=== PATIENT | female | born 1945 | race Caucasian/White ===

== ENCOUNTER → 2017-03-23 | Outpatient (CLI) | payer MEDICARE, OTHER | END | disposition home or self-care (01) | LOC: GMAB 10:54 | PROVIDERS: ATTEND Family Medicine | DX: D50.9 Iron deficiency anemia, unspecified (principal); I10 Essential (primary) hypertension; E53.8 Deficiency of other specified B group vitamins ==

== ENCOUNTER → 2017-03-30 | Outpatient (CLI) | payer MEDICARE, OTHER ==
--- NOTE | 2017-03-30 14:36 | US ---
EXAM DESCRIPTION: Carotid Duplex CLINICAL HISTORY: OCCLUSION AND STENOSIS OF BILATERAL CAROTID ARTERIES COMPARISON: None Available. TECHNIQUE: Carotid Doppler ultrasound with grayscale, color Doppler imaging, and spectral pulse Doppler evaluation FINDINGS: On the right the common carotid artery is tortuous with intimal thickening and minimal surface plaque with peak velocities of 71/9 cm/s. Focal calcified plaque mild at the carotid bifurcation with posterior acoustic shadowing is present. There is some plaque at the origin of the ICA noted. Antegrade flow in the external carotid artery and vertebral artery is evident. Peak ICA velocities are present distally at 95/24 cm/s with an ICA/CCA ratio of 1.3. No significant stenosis is identified. On the left, intimal thickening and mild tortuosity in the common carotid artery with peak velocities 78/17 cm/s noted echogenic and calcified plaque at the origin of the internal carotid artery is present. Antegrade flow in the external carotid artery and vertebral is present. Peak ICA velocities are 81/27 cm/s with an ICA/CCA ratio of 1.0. Mild spectral broadening is present. A hemodynamically significant stenosis is not evident. Less than 40% diameter stenosis is evident. IMPRESSION: Moderate bilateral atherosclerosis of each carotid bifurcation with normal Doppler evaluation without hemodynamically significant stenosis. Plaque formation is slightly greater on the left than the right. Antegrade flow both vertebral arteries. Electronically signed by: Greg Zambrano MD 03/30/2017 2:34 PM CDT
--- NOTE | 2017-03-31 13:36 | MAM ---
EXAM DESCRIPTION: 3D Screening BILATERAL CLINICAL HISTORY: 71 yearsFemaleSCREENING no complaints. No family history breast cancer. Postmenopausal. Taking HRT five or more years ago. COMPARISON: 2-D digital screening bilateral study 02/12/2014.. No prior reports available. TECHNIQUE: Bilateral CC and MLO projection full-field images, 3-D tomosynthesis digital mammographic technique. Also bilateral synthesized CC/ MLO full-field images. CAD not utilized. FINDINGS: The breast parenchymal density pattern is: Scattered areas of fibroglandular density. No skin thickening or nipple retraction left axillary lymph node. Bilateral solitary microcalcifications and larger calcifications. Bilateral vascular calcifications. Bilateral intramammary lymph nodes. No focal, stellate mass or density, focal asymmetry , and no suspicious microcalcifications bilaterally. Stable mammograms compared to prior study, taking into account differences in mammographic technique IMPRESSION: BI-RADS CATEGORY: 2 - BENIGN FINDINGS. FOLLOW UP: Routine digital bilateral screening, one year interval from March 2017. Written communication explaining the findings and follow-up, will be mailed to the patient and referring health care provider. According to the [employer], yearly mammograms are recommended starting at age 40 and continuing as long as a woman is in good health. Any breast change noted on a breast self-exam should be reported promptly to the patient's healthcare provider. Breast MRI is recommended for women with an approximately 20-25% or greater lifetime risk of breast cancer, including women with a strong family history of breast or ovarian cancer and women who have been treated for Hodgkin's disease. A negative mammographic report should not delay tissue diagnosis in patients with significant clinical history or physical findings. Extremely dense breast tissue limits the sensitivity of digital mammography. Electronically signed by: Jorge Alberto Hess MD 03/31/2017 1:35 PM CDT
== END | disposition home or self-care (01) ==
LOC: US 09:43
PROVIDERS: ATTEND Family Medicine
DX: Z12.31 Encounter for screening mammogram for malignant neoplasm of breast (principal); I65.23 Occlusion and stenosis of bilateral carotid arteries
CPT/HCPCS: 77063; 93880; G0202

== ENCOUNTER → 2017-10-06 | Outpatient (CLI) | payer MEDICARE, OTHER | LOC: GMAB 10:18 | PROVIDERS: ATTEND Family Medicine | DX: D53.9 Nutritional anemia, unspecified (principal); D50.9 Iron deficiency anemia, unspecified; E11.9 Type 2 diabetes mellitus without complications ==

== ENCOUNTER → 2017-10-24 | Outpatient (CLI) | payer MEDICARE, OTHER ==
--- NOTE | 2017-10-25 09:33 | RAD ---
EXAM DESCRIPTION: Pelvis CLINICAL HISTORY: 72 years Female, PAIN IN RIGHT HIP COMPARISON: None. TECHNIQUE: Frontal view of the hips and pelvis FINDINGS: Frontal view of the pelvis shows mild degenerative changes in the lower L-spine, at the SI joints and pubic symphysis. Mild narrowing of the medial hip joints. No fracture or dislocation. Few vascular calcifications in the pelvis. IMPRESSION: Degenerative changes as described. Electronically signed by: Tejinder Reese MD 10/25/2017 9:32 AM CDT
== END | disposition home or self-care (01) ==
LOC: RAD 08:03
PROVIDERS: ATTEND Orthopaedic Surgery
DX: M25.551 Pain in right hip (principal)

== ENCOUNTER → 2018-03-29 | Outpatient (CLI) | payer MEDICARE, OTHER | LOC: GMAE 11:37 | PROVIDERS: ATTEND Family Medicine | DX: I10 Essential (primary) hypertension (principal) ==

== ENCOUNTER 2018-11-26 05:25 | Day surgery (SDC) | payer MEDICARE, OTHER ==
[2018-11-26] MEDS ORDERED: TROP 1%/CYCLOPEN 1%/PHENYL 2% DROPS ONE (06:01)
[2018-11-26] MEDS ORDERED: MOXIFLOXACIN HCL (OPHTH) 1 DROP DROPS ONE (06:01)
[2018-11-26] MEDS ORDERED: PROPARACAINE 0.5% OPHTH SOL 15 ML BTTL ONE (06:01)
[2018-11-26] MEDS ORDERED: PROPARACAINE 0.5% OPHTH SOL 15 ML BTTL RIGHT_EYE ONE (07:15)
== END 2018-11-26 07:30 | disposition home or self-care (01) ==
LOC: AMB 05:25
PROVIDERS: ATTEND Ophthalmology
DX: H26.491 Other secondary cataract, right eye (principal); Z79.84 Long term (current) use of oral hypoglycemic drugs; Z79.899 Other long term (current) drug therapy

== ENCOUNTER → 2019-04-02 | Outpatient (CLI) | payer MEDICARE, OTHER ==
--- NOTE | 2019-04-03 08:40 | US ---
EXAM DESCRIPTION: Carotid Duplex CLINICAL HISTORY: OCCLUSION AND STENOSIS OF BIRL CAROTID ARTERIES COMPARISON: Previous carotid Doppler sonogram March 30, 2017 TECHNIQUE: Carotid Doppler ultrasound FINDINGS: Right Submitted images show tortuous right CCA with calcified plaque at the right carotid bifurcation with appearance unchanged compared to the previous study. Axial images shows 22% area narrowing of the right carotid bulb and 35% area narrowing of the proximal right ICA. The following flow velocities were obtained: Common carotid artery peak systolic flow velocity measures 81 centimeters per second. Internal carotid artery peak systolic flow velocity measures 55 - 111 centimeters per second. External carotid artery peak systolic flow velocity measures 63 centimeters per second. Flow in the right vertebral artery is antegrade. The right internal carotid to common carotid peak systolic flow velocity ratio equals 1.4 which is normal. Left Submitted images show dense calcified plaque in the left carotid bulb and proximal left ICA unchanged in appearance compared to previous. Transverse image shows 47% area narrowing of the left carotid bulb. The following flow velocities were obtained: Common carotid artery peak systolic flow velocity measures 62 centimeters per second. Internal carotid artery peak systolic flow velocity measures 66-92 centimeters per second. External carotid artery peak systolic flow velocity measures 77 centimeters per second. Flow in the left vertebral artery is antegrade. The left internal carotid to common carotid peak systolic flow velocity ratio of 1.5 is normal. IMPRESSION: Calcified arteriosclerotic plaque at the bilateral carotid bifurcations unchanged in appearance compared to previous study. No significantly elevated flow velocities to suggest hemodynamically significant stenosis. Electronically signed by: Tejinder Reese MD 04/03/2019 8:37 AM CDT
== END ==
LOC: US 13:24
PROVIDERS: ATTEND Family Medicine
DX: I65.23 Occlusion and stenosis of bilateral carotid arteries (principal); E04.1 Nontoxic single thyroid nodule

== ENCOUNTER → 2019-04-04 | Outpatient (CLI) | payer MEDICARE, OTHER ==
--- NOTE | 2019-04-05 15:13 | US ---
US THYROID CLINICAL STATEMENT: NONTOXIC SINGLE THYROID NODULE. . No palpable mass, no thyroid surgery or therapy. COMPARISON: None TECHNIQUE: Transcutaneous scanning, grayscale and Doppler modes. FINDINGS: Size right thyroid lobe: 3.5 x 1.5 x 1.5 cm Size left thyroid lobe: 2.6 x 1.2 x 1.1 cm Size isthmus: 0.3 cm Estimated total number of nodules greater than or equal to 1 cm: 2 Nodule 1: Size: 1.4 x 0.9 x 0.7 cm Location: Right Lower Composition: solid or almost completely solid: 2 points Echogenicity: hypoechoic: 2 points Shape: wider than tall: 0 points Margins: ill-defined: 0 points Echogenic foci: none: 0 points ACR Total Points: 4; ACR TI-RADS risk category: TR4 - moderately suspicious nodule. Nodule 2: Size: 1.0 x 1.0 x 0.7 cm Location: Right Upper Composition: solid or almost completely solid: 2 points Echogenicity: hypoechoic: 2 points Shape: wider than tall: 0 points Margins: smooth: 0 points. Vascularity abutting the margin. Echogenic foci: none: 0 points ACR Total Points: 4; ACR TI-RADS risk category: TR4 - moderately suspicious nodule. Nodule 3: Size: 0.6 x 0.5 x 0.4 cm Location: Left Lower Composition: spongiform: 0 points Echogenicity: hypoechoic: 2 points Shape: wider than tall: 0 points Margins: smooth: 0 points Echogenic foci: none: 0 points ACR Total Points: 2; ACR TI-RADS risk category: TR2 - nonsuspicious nodule. No dominant solid mass or distinct cyst or calcification in the soft tissues. IMPRESSION: 1. Nodule 1: ACR TI-RADS 2017 Category TR4. Recommend: Follow-up ultrasound in 1 year.. Recommendations based upon [facility] Best [employer] recommendations and ACR TI-RADS 2017 guidelines. Please see below*. 2. Nodule 2: ACR TI-RADS 2017 Category TR4. Recommend: Follow-up ultrasound in 1 year. 3. Nodule 3: ACR TI-RADS 2017 Category TR2. Recommend: No further follow-up. 4. Soft tissue around the thyroid gland is unremarkable. *ACR TI-RADS 2017 Recommendations for imaging follow-up of nodules: TR1: No FNA or follow up TR2: No FNA or follow up TR3: FNA if >/= 2.5 cm, follow up if 1.5 - 2.4 cm in 1, 3, and 5 years TR4: FNA if >/= 1.5 cm, follow up if 1.0 - 1.4 cm in 1, 2, 3, and 5 years TR5: FNA if >/= 1.0 cm, follow up if 0.5 - 0.9 cm every year for 5 years ACR TI-RADS recommends that no more than two nodules with the highest ACR TI-RADS total point should be biopsied and no more than four nodules should be followed. These recommendations do not apply to patients with increased risk for thyroid cancer or patients with symptomatic thyroid disease. Electronically signed by: Jorge Alberto Hess MD 04/05/2019 3:12 PM CDT
== END ==
LOC: US 13:30
PROVIDERS: ATTEND Family Medicine
DX: E04.2 Nontoxic multinodular goiter (principal); I65.23 Occlusion and stenosis of bilateral carotid arteries

== ENCOUNTER → 2019-11-11 | Outpatient (CLI) | payer MEDICARE, OTHER ==
--- NOTE | 2019-11-12 17:13 | MAM ---
EXAM DESCRIPTION: 3D Diagnostic, Bilateral (accession [id number]), Breast,Right (accession [id number]): Ultrasound CLINICAL HISTORY: 74 yearsFemaleBREAST LUMP upper outer quadrant posterior third right breast. No personal or family history of breast cancer. Menarche age 10. Childbirth age 22. Menopause age 38. HRT 5 or more years ago. Lifetime risk of developing breast cancer (Tyrer-Cuzick model)(%): 3.0. COMPARISON: Bilateral screening digital breast tomosynthesis March 2017. TECHNIQUE: Bilateral LM, CC, and MLO projection full-field images, digital tomosynthesis technique. Bilateral 2-D digital full-field images: LM, CC, and MLO projections. CAD available for 2-D images.. Transcutaneous scanning of the right breast utilizing bernabe-scale and Doppler modes. Scanning performed by the coding coordinator ; monitoring by Dr. Hess. Limited MLO projection of the right breast due to patient physical condition. FINDINGS: The breast parenchymal density pattern is: Scattered areas of fibroglandular density. No skin thickening or nipple retraction skin marker upper outer quadrant posterior third right breast. No mammographic abnormality. Bilateral solitary microcalcifications. Bilateral skin mole markers. Left axillary lymph nodes. Vascular calcifications. No new focal, stellate mass or density, focal asymmetry , and no suspicious microcalcifications bilaterally. Stable mammograms compared to prior study, taking into account differences in mammographic technique Ultrasound: Scanning of the region of interest in the right axilla around the skin marker. Mostly fatty echotexture. No enlarged lymph nodes. No dominant solid mass, no distinct cyst, no large calcifications. IMPRESSION: Benign exam. BIRAD CATEGORY: 2 BENIGN FINDINGS. RECOMMENDATIONS: FOLLOW UP: Routine digital bilateral mammographic screening, one year interval from October 2019. Written communication explaining the IMPRESSION and follow-up, will be mailed to the patient and referring health care provider. The FINDINGS and the FOLLOW-UP plan were reviewed in person with the patient after the examination. According to the [employer], yearly mammograms are recommended starting at age 40 and continuing as long as a woman is in good health. Any breast change noted on a breast self-exam should be reported promptly to the patient's healthcare provider. Breast MRI is recommended for women with an approximately 20-25% or greater lifetime risk of breast cancer, including women with a strong family history of breast or ovarian cancer and women who have been treated for Hodgkin's disease. A negative mammographic report should not delay tissue diagnosis in patients with significant clinical history or physical findings. Extremely dense breast tissue limits the sensitivity of digital mammography. Electronically signed by: Jorge Alberto Hess MD 11/12/2019 5:12 PM CDT
== END ==
LOC: MAMMO 11:33
PROVIDERS: ATTEND Family Medicine
DX: R92.8 Other abnormal and inconclusive findings on diagnostic imaging of breast (principal)
CPT/HCPCS: 76641; 77066; G0279

== ENCOUNTER → 2020-01-16 | Outpatient (CLI) | payer MEDICARE, OTHER ==
--- NOTE | 2020-01-16 13:07 | RAD ---
EXAM DESCRIPTION: Shoulder,Right 2 or More Views CLINICAL HISTORY: 74 years Female, PAIN COMPARISON: None. Findings: 3 views/radiographs Location: Right shoulder No acute fracture or dislocation. Mild acromioclavicular osteoarthritis. Soft tissues are unremarkable. Subacromial space is maintained. Visualized chest is clear. Osteopenia. Atherosclerotic disease. Advanced glenohumeral osteoarthritis with remodeling of the humeral head and bulky osteophytes. IMPRESSION: Advanced right shoulder osteoarthritis. No acute osseous abnormality. Electronically signed by: Aravind Bledsoe MD 01/16/2020 1:05 PM CDT
== END ==
LOC: RAD 07:56
PROVIDERS: ATTEND Orthopaedic Surgery
DX: M19.011 Primary osteoarthritis, right shoulder (principal)

== ENCOUNTER → 2020-01-31 | Outpatient (CLI) | payer MEDICARE, OTHER | LOC: GMAE 10:29 | PROVIDERS: ATTEND Family Medicine | DX: R21 Rash and other nonspecific skin eruption (principal); E87.5 Hyperkalemia ==

== ENCOUNTER 2020-02-03 17:10 | Observation (INO) | payer MEDICARE, OTHER ==
[2020-02-03] MEDS ORDERED: IBUPROFEN 200 MG TAB PO ONE (17:24)
--- NOTE | 2020-02-03 18:06 | CT ---
EXAM: CT head CLINICAL INDICATION: Altered mental status COMPARISON: There is no previous study for comparison. TECHNIQUE: CT scan was done using contiguous axial 5 mm sections through the brain. This exam was performed according to our departmental dose-optimization program, which includes automated exposure control, adjustment of the mA and/or kV according to patient size and/or use of iterative reconstruction technique. FINDINGS: There is no midline shift, mass effect, or extraaxial fluid collection. There is no evidence of acute intracranial hemorrhage, mass lesion, or cerebral edema. The ventricles and cortical sulci are normal for the patient's age. Bone window images reveal no evidence of a skull fracture. IMPRESSION: No evidence of an acute intracranial process. Electronically signed by: Jeb Rice MD 02/03/2020 6:04 PM CDT
[2020-02-03] MEDS ORDERED: SODIUM CHLORIDE 0.9% 1000ML 1,000 ML IVS ONE (18:39)
[2020-02-03] MEDS ORDERED: PANTOPRAZOLE SODIUM IV 40 MG VIAL IV ONE (18:39)
[2020-02-03] MEDS ORDERED: MAGNESIUM SULFATE PREMIX 2GM 2 GM in PREMIX BAG 1 BAG IVPB ONE (18:41)
[2020-02-03] MEDS ORDERED: ACETYLCYSTEIN 20 % 6,000 MG/30 ML VIAL PO ONE (18:42)
--- NOTE | 2020-02-03 18:52 | RAD ---
EXAM: AP CHEST RADIOGRAPH CLINICAL INDICATION: Altered mental status. COMPARISON: Compared to the chest radiographs performed December 19, 2018. FINDINGS: Unchanged large gastric hiatal hernia. Cardiac size and pulmonary vasculature are normal. No pleural effusions. No pneumothorax, pneumomediastinum or free peritoneal gas. No hilar or mediastinal lymphadenopathy. No mediastinal widening. Unchanged degenerative disease in the right shoulder and partially visualized spine. Bones are intact on this single view. IMPRESSION: Unchanged large gastric hiatal hernia. No acute cardiopulmonary disease. Electronically signed by: Jose Solis MD 02/03/2020 6:51 PM CDT
--- NOTE | 2020-02-03 19:50 | CT ---
EXAM: CTA Chest HISTORY: elevatd d-dimer, fever, ams COMPARISON: 02/03/2020. 12/19/2018. TECHNIQUE: Contiguous axial CTA images of the chest were obtained from the thoracic inlet to the upper abdomen after administration of intravenous contrast followed by multiplanar reformats. 3-D postprocessing was performed. This exam was performed according to our departmental dose-optimization program, which includes automated exposure control, adjustment of the mA and/or kV according to patient size and/or use of iterative reconstruction technique. FINDINGS: There is adequate opacification of the pulmonary arterial vasculature. There is no evidence of pulmonary embolus. Heart size normal. No evidence of right heart strain. No pericardial effusion. No mediastinal adenopathy. Central airways are patent. Great vessels are normal. Mild mosaic attenuation throughout the lungs. No discrete nodular opacities. Minimal right basilar atelectasis. No pneumothorax or pleural effusion. Limited visualization of upper abdominal contents is unremarkable for an acute process, although there is a large sliding-type hiatal hernia, with the majority of the stomach situated above the diaphragmatic hiatus. No destructive osseous lesion. IMPRESSION: 1. No evidence of acute pulmonary embolus. 2. Nonspecific mosaic attenuation throughout the lungs, indicative of air trapping, such as due to small airways disease and/or reactive bronchiolitis. 3. Large sliding-type hiatal hernia. Electronically signed by: Jeb Rea MD 02/03/2020 7:49 PM CDT
--- NOTE | 2020-02-03 19:58 | CT ---
EXAM DESCRIPTION: Abdomen/Pelvis w/Contrast CLINICAL HISTORY: 74 years Female elevated d-dimer, fever, ams, anemia COMPARISON: None TECHNIQUE: Multiple contiguous axial CT slices were taken from the diaphragms to the pubic symphysis after intravenous administration of Iodinated contrast. This exam was performed according to our departmental dose-optimization program, which includes automated exposure control, adjustment of the mA and/or kV according to patient size and/or use of iterative reconstruction technique. FINDINGS: Right basilar atelectasis. Visualized cardiomediastinal structures are normal. The liver is normal. No focal hepatic lesions. The gallbladder surgically absent. The bile ducts are normal. The pancreas, spleen and adrenals are normal. The kidneys, ureters and bladder are normal. Uterus is surgically absent. No adnexal masses. The small bowel is normal. Appendix is nonvisualized. There are no secondary signs of appendiceal inflammation. There are scattered colonic diverticulosis without evidence of acute diverticulitis. Postoperative changes of partial colectomy at the rectosigmoid junction. Anastomosis appears intact. No ascites, pneumatosis or pneumoperitoneum. No lymphadenopathy. Aortoiliac atherosclerosis. No aneurysm. The IVC is normal. Large ventral abdominal hernia defects containing fat and colon. No evidence of soft tissue compromise. No destructive osseous lesion. Scoliosis and spondylosis. IMPRESSION: 1. No acute abnormality evident. 2. Large sliding-type L hernia. 3. Large ventral abdominal hernia defect without concerning features. 4. Colonic diverticulosis without evidence of acute diverticulitis. Electronically signed by: Jeb Rea MD 02/03/2020 7:56 PM CDT
[2020-02-03] MEDS ORDERED: DEXAMETHASONE 4 MG TAB PO ONE (20:42)
[2020-02-03] MEDS ORDERED: PIPERACILLIN/TAZOBACTAM 3.375 GM in SODIUM CHLORIDE 0.9% 100ML 100 ML IVPB ONE (20:42)
[2020-02-03] MEDS ORDERED: ENOXAPARIN SODIUM 40 MG/0.4 ML SYG SUBCU ONE (20:56)
[2020-02-03] MEDS ORDERED: AZITHROMYCIN IV 500 MG in SODIUM CHLORIDE 0.9% 250ML 250 ML IVPB ONE (21:07)
--- NOTE | 2020-02-03 21:11 | ED.PDOC ---
History of Present Illness - General Chief Complaint: Neuro Symptoms/Deficits Stated Complaint: altered mental status Time Seen by Provider: 02/03/20 17:10 Source: patient Exam Limitations: no limitations - History of Present Illness Initial Comments: The patient is a 74-year-old female presented emergency room secondary to an episode of confusion. The episode started about an hour prior to arrival. The patient is able to speak but she does not really know where she is. She does recognize her . She is not certain what is going on. No focal neurological deficits. No slurring of the speech. No weakness in the extremities. No obvious sensory changes. Patient does have a low-grade fever of 100.6 upon arrival. No chest pain, abdominal pain or shortness of breath. No syncope or near syncope. No history of any strokes. The patient does have an aortic valve it apparently needs replacing. The patient was doing her preop 1 week ago when she developed a rash that extended over her torso and upper extremities. She did see dermatology who did take a biopsy. Biopsy results are pending. In the meantime she has been put on low-dose oral steroid and approximately 20 mg of prednisone daily according to the patient's . No sore throat or runny nose. Mild cough. No history of any significant dietary intolerances. No history of any parasitic infections. No history of a known arthropod diseases. No history of any vasculitis. Timing/Duration: 1 hour Severity: moderate Improving Factors: nothing Worsening Factors: nothing Associated Symptoms: cough, fever/chills, malaise Allergies/Adverse Reactions: Allergies NO KNOWN ALLERGY Allergy (Verified 12/19/18 18:23) Home Medications: Ambulatory Orders Calcium Carbonate-Vitamin D [Calcium 600 + D 600-400 mg-Unit] 1 tab PO DAILY 08/02/13 Lisinopril 20 mg PO DAILY 08/02/13 metFORMIN HCL [Glucophage] 500 mg PO BID 08/02/13 Atorvastatin Calcium 40 mg PO DAILY 12/19/18 Isosorbide Mononitrate [Isosorbide Mononitrate ER] 15 mg PO DAILY 12/19/18 Pantoprazole Sodium 40 mg PO BEDTIME 12/19/18 Calcium 600 mg PO DAILY 02/03/20 Metoprolol Succinate [Metoprolol Succinate ER] 25 mg PO DAILY 02/03/20 Omeprazole 20 mg PO BID 02/03/20 Review of Systems - Review of Systems Constitutional: States: malaise, weakness - Mild generalized with a fever EENTM: States: no symptoms reported Respiratory: States: cough Cardiology: States: no symptoms reported Gastrointestinal/Abdominal: States: no symptoms reported Genitourinary: States: no symptoms reported Musculoskeletal: States: no symptoms reported Skin: States: see HPI Neurological: States: see HPI Endocrine: States: no symptoms reported All other Systems: No Change from Baseline Past Medical History (General) - Patient Medical History Hx Stroke: No Hx Asthma: No Hx of COPD: No Hx Cardiac Disorders: Yes - Poor valve function, per patient Hx Congestive Heart Failure: No Hx Pacemaker: No Hx Hypertension: Yes Hx Diabetes: Yes Hx MRSA: No - Vaccination History Hx Influenza Vaccination: Yes Hx Pneumococcal Vaccination: Yes - Social History Hx Tobacco Use: No Hx Alcohol Use: No Hx Substance Use: No Hx Physical Abuse: No Hx Emotional Abuse: No Family Medical History - Family History Mother Living Status: Hx Family Stroke: Yes Hx Cardiac Disease: Yes Physical Exam - Physical Exam General Appearance: Alert, Ill Appearing - Confused Eye Exam: bilateral normal Ears, Nose, Throat: hearing grossly normal, normal pharynx Neck: non-tender, full range of motion, supple Respiratory: no respiratory distress, no accessory muscle use, rales - Mild scattered Cardiovascular/Chest: normal peripheral pulses, regular rate, rhythm, no edema Peripheral Pulses: radial,right: 2+, radial,left: 2+ Gastrointestinal/Abdominal: non tender, soft Rectal Exam: deferred Back Exam: no CVA tenderness, no vertebral tenderness Extremity: normal range of motion, non-tender, normal inspection, no pedal edema, normal capillary refill Neurologic: wire stockkeeper II-XII nml as tested, no motor/sensory deficits, alert, other - The patient is oriented to who she is and she recognizes her . Skin Exam: other - Diffuse papular rash. The patient also has healing oral lesions at this point. No obvious vesicles. Comments: Vital Signs - 24 hr 02/03/20 02/03/20 02/03/20 17:16 18:10 19:00 Temperature 100.6 F H 100.1 F H Pulse Rate [ 91 H 53 L 81 left brachial] Respiratory 20 20 14 Rate Blood Pressure 111/81 128/56 123/58 [left brachial] O2 Sat by Pulse 97 98 94 L Oximetry 02/03/20 02/03/20 20:00 21:00 Temperature Pulse Rate [ 82 81 left brachial] Respiratory 16 14 Rate Blood Pressure 123/58 105/61 [left brachial] O2 Sat by Pulse 94 L 93 L Oximetry Progress - Progress Progress: 02/03/20 21:14 The patient is a 74-year-old female presented emergency room secondary to an episode of delirium that was associated with fever. Work-up is shown a significant leukocytosis, along with an eosinophilic shift. There is an additionally an elevated d-dimer. Additionally the patient does have a mild picture of bronchiolitis on the CT scan of the chest. The patient is going to be covered for possible bacterial pathologies with broad-spectrum antibiotics of Zosyn and azithromycin. She is going to be continued on a steroid that was started by dermatology. The patient has tested negative for coronavirus here. Mental status is back to normal. No focal neurological changes at this time. Due to the eosinophilia, stool samples will be sent off. Additionally, consideration could be given towards possible underlying vasculitis. An inflammatory panel is being sent off. Admit for continued monitoring overnight. saroj galicia [phone] - Results/Orders Results/Orders: CT scan of the head shows no obvious acute pathology. CT angiogram of the chest shows no evidence of any pulmonary embolus. There are mild changes possibly consistent with bronchiolitis. CT of abdomen pelvis shows chronic changes of a large hiatal hernia along with a large ventral hernia without any acute changes. EKG shows normal sinus rhythm 82 bpm. Normal axis. Normal R wave progression. No ST segment or T wave changes indicative of acute ischemia. Laboratory Tests 02/03/20 02/03/20 02/03/20 17:53 17:53 17:53 WBC 13.9 H RBC 4.17 L Hgb 9.8 L Hct 31.2 L MCV 74.8 L MCH 23.5 L MCHC 31.4 L RDW 20.2 H Plt Count 375 MPV 7.5 Absolute Neuts (auto) 7.50 H Absolute Lymphs (auto) 2.40 Absolute Monos (auto) 1.10 H Absolute Eos (auto) 2.80 H Absolute Basos (auto) 0.10 Neutrophils % 53.8 Lymphocytes % 17.5 L Monocytes % 7.8 Eosinophils % 20.2 H Basophils % 0.7 Normal RBC Morphology Stain quality accept PT 10.4 INR 1.05 PTT (SP) 21.9 D-Dimer, Quantitative 3430.0 H* Sodium 137 Potassium 5.2 H Chloride 106 Carbon Dioxide 23 Anion Gap 13.2 BUN 35 H Creatinine 1.05 BUN/Creatinine Ratio 33.3 H Random Glucose 133 H Serum Osmolality 283.7 Lactic Acid Calcium 9.0 Magnesium 1.6 L Total Bilirubin 0.5 AST 13 ALT 17 Alkaline Phosphatase 72 Creatine Kinase 21 L CK-MB (CK-2) 1.3 CK-MB (CK-2) % Not Reportable Troponin I 0.02 B-Natriuretic Peptide 48.4 Serum Total Protein 6.5 Albumin 3.2 Globulin 3.3 Albumin/Globulin Ratio 1.0 L TSH 1.98 Urine Color Urine Appearance Urine pH Ur Specific [place] Urine Protein Urine Glucose (UA) Urine Ketones Urine Blood Urine Nitrite Urine Bilirubin Urine Urobilinogen Ur Leukocyte Esterase Urine RBC Urine WBC Ur Epithelial Cells Amorphous Sediment Urine Bacteria 02/03/20 02/03/20 17:53 18:20 WBC RBC Hgb Hct MCV MCH MCHC RDW Plt Count MPV Absolute Neuts (auto) Absolute Lymphs (auto) Absolute Monos (auto) Absolute Eos (auto) Absolute Basos (auto) Neutrophils % Lymphocytes % Monocytes % Eosinophils % Basophils % Normal RBC Morphology PT INR PTT (SP) D-Dimer, Quantitative Sodium Potassium Chloride Carbon Dioxide Anion Gap BUN Creatinine BUN/Creatinine Ratio Random Glucose Serum Osmolality Lactic Acid 1.5 Calcium Magnesium Total Bilirubin AST ALT Alkaline Phosphatase Creatine Kinase CK-MB (CK-2) CK-MB (CK-2) % Troponin I B-Natriuretic Peptide Serum Total Protein Albumin Globulin Albumin/Globulin Ratio TSH Urine Color Yellow Urine Appearance Sl cloudy Urine pH 5.5 Ur Specific [place] 1.015 Urine Protein Negative Urine Glucose (UA) Negative Urine Ketones Negative Urine Blood Trace-intact H Urine Nitrite Negative Urine Bilirubin Negative Urine Urobilinogen 0.2 Ur Leukocyte Esterase Negative Urine RBC 3-5 H Urine WBC 3-5 H Ur Epithelial Cells 1-3 Amorphous Sediment 1+ Urine Bacteria 3+ H - EKG/XRAY/CT CT Ordered: Yes CT Interpretation Call Back: Yes Departure - Departure Clinical Impression: Delirium, Bronchiolitis, Hypomagnesemia, Acute renal insufficiency Leukocytosis Qualifiers: Leukocytosis type: eosinophilia Qualified Code(s): D72.1 - Eosinophilia Disposition: Admit Patient Condition: Poor Departure Forms: ED Discharge - Pt. Copy, Patient Portal Self Enrollment Referrals: VANESSA CASE MD [Primary Care Provider] - 1-2 Weeks Home Medications: Ambulatory Orders Calcium Carbonate-Vitamin D [Calcium 600 + D 600-400 mg-Unit] 1 tab PO DAILY 08/02/13 Lisinopril 20 mg PO DAILY 08/02/13 metFORMIN HCL [Glucophage] 500 mg PO BID 08/02/13 Atorvastatin Calcium 40 mg PO DAILY 12/19/18 Isosorbide Mononitrate [Isosorbide Mononitrate ER] 15 mg PO DAILY 12/19/18 Pantoprazole Sodium 40 mg PO BEDTIME 12/19/18 Calcium 600 mg PO DAILY 02/03/20 Metoprolol Succinate [Metoprolol Succinate ER] 25 mg PO DAILY 02/03/20 Omeprazole 20 mg PO BID 02/03/20
[2020-02-03] MEDS ORDERED: SODIUM CHLORIDE 0.9% 250ML 250 ML ONE (21:44)
[2020-02-03] MEDS ORDERED: SODIUM CHLORIDE 0.9% 1000ML 1,000 ML IVS PRN (22:06)
[2020-02-04] MEDS ORDERED: diphenhydrAMINE HCL 25 MG CAP PO ONE (04:00)
[2020-02-04] MEDS ORDERED: diphenhydrAMINE HCL 25 MG CAP PO PRN (08:24)
[2020-02-04] MEDS ORDERED: SODIUM CHLORIDE 0.9% (FLUSH) 10 ML SYG IV SCH (09:00)
[2020-02-04] MEDS ORDERED: ISOSORBIDE MONONITRATE (IMDUR) 30 MG TAB PO SCH ×2 (09:00→09:30)
[2020-02-04] MEDS ORDERED: AZITHROMYCIN 250 MG TAB PO SCH (09:00)
[2020-02-04] MEDS ORDERED: LISINOPRIL 10 MG TAB PO SCH (09:00)
[2020-02-04] MEDS ORDERED: ISOSORBIDE MONONITRATE (IMDUR) 30 MG TAB ONE (09:23)
[2020-02-04] MEDS ORDERED: LISINOPRIL 10 MG TAB ONE (09:23)
[2020-02-04] MEDS ORDERED: predniSONE 20 MG TAB ONE (09:53)
[2020-02-04] MEDS ORDERED: predniSONE 20 MG TAB PO SCH (10:00)
--- NOTE | 2020-02-04 11:23 | PCM.H&P ---
History of Present Illnes - History of Present Illness Reason for Visit: Altered mental status History of Present Illness: Pt is a 74yoF with PMH including severe aortic stenosis, DM2, HTN, HLD, & GERD who presented to the ED yesterday (02/02) evening with confusion. This started about an hour prior to arrival. She was oriented to person but not place or time, which is far from her baseline. No other neuro changes were noted. She had a low grade fever but no other significant Sx (see ED note for details). 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 She remains on Prednisone 20mg qd for the rash. Today, she states that she feels back to normal. She is no longer confused and can recall most of what happened yesterday. She denies any CP, SoB, abd pain, dysuria, or other Sx aside from her continued pruritus. - Past Medical History Cardiac: HTN, Hyperlipidemia, Aortic stenosis - SEVERE Endocrine: Diabetes - Past Surgical History Past Surgical History: Hysterectomy, Other - cataract removal - Past Family History Family History: DM - Past Social History Smoke: No Alcohol: None Drugs: None Lives: With Family Review of Systems - Review of Systems Constitutional: Denies: Fever, Chills Eyes: Denies: Vision Change Respiratory: Denies: Cough, Shortness of Breath, Wheezing Cardiovascular: Denies: Chest Pain, Edema Gastrointestinal: Denies: Nausea, Vomiting, Abdominal Pain, Diarrhea Genitourinary: Denies: Dysuria Musculoskeletal: Denies: Back Pain Skin: States: Rash - diffuse, pruritic, Lesions - oral, improving Neurological: States: Confusion. Denies: Weakness, Numbness - Medications/Allergies Allergies/Adverse Reactions: Allergies Allergy/AdvReac Type Severity Reaction Status Date / Time NO KNOWN ALLERGY Allergy Verified 02/03/20 23:47 Medications: Current Medications Azithromycin (Zithromax Tab) 500 mg PO Q24H LATRELL Stop: 02/08/20 08:59 Last Admin: 02/04/20 09:55 Dose: 500 mg Documented by: Diphenhydramine HCl (Benadryl) 25 mg PO Q4H PRN PRN Reason: itching Stop: 03/05/20 08:23 Last Admin: 02/04/20 10:00 Dose: 25 mg Documented by: Sodium Chloride (Ns 1000 Ml) 1,000 mls @ 50 mls/hr IVS .QD PRN PRN Reason: IV THERAPY Stop: 03/04/20 22:05 Last Admin: 02/04/20 00:26 Dose: 50 mls/hr Documented by: Isosorbide Mononitrate (Imdur) 15 mg PO DAILY LATRELL Stop: 03/05/20 08:59 Last Admin: 02/04/20 09:58 Dose: 15 mg Documented by: Lisinopril (Prinivil) 20 mg PO DAILY LATRELL Stop: 03/05/20 08:59 Last Admin: 02/04/20 09:56 Dose: 20 mg Documented by: Pantoprazole Sodium (Protonix) 40 mg PO BEDTIME LATRELL Stop: 03/05/20 20:59 Prednisone () 20 mg PO DAILY LATRELL Stop: 03/05/20 09:59 Last Admin: 02/04/20 09:59 Dose: 20 mg Documented by: Sodium Chloride (Saline Flush Syringe) 3 ml IV BID LATRELL Stop: 03/05/20 08:59 Last Admin: 02/04/20 09:59 Dose: 3 ml Documented by: Exam - Exam Vital Signs: Vital Signs (72 hours) 02/03/20 02/03/20 02/03/20 17:16 18:10 19:00 Temperature 100.6 F H 100.1 F H Pulse Rate [ 91 H 53 L 81 left brachial] Respiratory 20 20 14 Rate Blood Pressure 111/81 128/56 123/58 [left brachial] O2 Sat by Pulse 97 98 94 L Oximetry 02/03/20 02/03/20 02/03/20 20:00 21:00 21:35 Temperature 98.3 F Pulse Rate [ 82 81 82 left brachial] Respiratory 16 14 16 Rate Blood Pressure 123/58 105/61 132/80 [left brachial] O2 Sat by Pulse 94 L 93 L 97 Oximetry 02/03/20 02/03/20 02/04/20 21:50 23:00 01:35 Temperature 98.2 F 98.2 F Pulse Rate [ 81 66 left brachial] Respiratory 14 16 Rate Blood Pressure 105/61 104/75 [left brachial] O2 Sat by Pulse 93 L 97 97 Oximetry 02/04/20 05:18 Temperature 98.1 F Pulse Rate [ 68 left brachial] Respiratory 16 Rate Blood Pressure 114/74 [left brachial] O2 Sat by Pulse 95 Oximetry General: Alert, Cooperative, No acute distress, Other - oriented to person only on admission HEENT: Atraumatic Lungs: Clear to auscultation Cardiovascular: Regular rate, Other - 5/6 aortic stenosis murmur Abdomen: Normal bowel sounds, Soft, No tenderness Extremities: No edema Skin: No breakdown - severe papulo-nodular erythematous rash diffusely (though improved from clinic visit with me last week) with excoriations; also has improvement in her oral lesions Neurological: Normal speech, Normal tone, Sensation intact Psych/Mental Status: Mood NL, Other - confused Assessment/Plan - Assessment/Plan Assessment: 1. Delerium - Improved as of my visit this morning. CT Head wnl. - UA not c/w UTI. No acute abnormalities on CT Abd/Pelvis. - WBC elevated but COVID negative, will repeat this to be sure given elevated D- dimer & low lymphocytes. - Is on steroids, but at this low dose & several days into her course it is unlikely that these are contributing. - Autoimmune/inflammatory panel sent from ED. - Continue home medications. - Monitor for any AMS, especially with Benadryl or Prednisone. 2. Abnormal Chest CT/Bronchiolitis: - Air trapping without ground glass opacities. No PE. - As above, rpt COVID to be sure given abnormal labs. - Can continue steroid dose for her rash & switch ABx to Azithromycin. - Monitor sats, currently breathing easily without abnormal lung sounds on RA. - Rpt CBC & D-Dimer. 3. Severe Aortic Stenosis: - Needs TAVR, but this was cancelled 2/2 rash. - Minimize exertion; currently asymptomatic. - Echo up to date as outpatient. 4. Unspecified Rash with Oral Lesions: - Slowly improving with Prednisone & time. - Benadryl prn itching. Continue Prednisone 20mg qd. - Called derm office, no Bx results as of yet. - ?Auto-immune, vasculitis, drug reaction? 5. Hyperkalemia - Mild, K 5.2 on admit. Rpt BMP. Past Medical History - Past Medical History General Medical History: diabetes, hypertension, other - hyperlipidemia and severe aortic stenosis Surgical History: other - see HPI - Social History Smoking Status:: NEVER Smoker Have you smoked in past 12 months:: No Chew or Dip Tobacco: No Alcohol Use: none
--- NOTE | 2020-02-04 11:56 | PCM.DS ---
Discharge Summary - Problem(s) (1) Delirium Comment(s): Resolved on day of discharge (2) Bronchiolitis Comment(s): Asymptomatic but with evidence on CTA; negative for PE and COVID. (3) Rash and nonspecific skin eruption Comment(s): Improved slightly from clinic visit last week but still present & pruritic; concerning for autoimmune process with labs pending. (4) Hyperkalemia Comment(s): Resolved on repeat (down fto 4.8 from 5.2) (5) Leukocytosis Qualifiers: Leukocytosis type: unspecified Qualified Code(s): D72.829 - Elevated white blood cell count, unspecified Comment(s): Worse today but possibly 2/2 steroids, autoimmune process; will f/u with me tomorrow in clinic as below (6) Aortic stenosis, severe Comment(s): Awaiting TAVR - Discharge Plan/CCD Plan of Treatment: Pt was initially admitted for delirium. UA was without evidence of UTI. CTA showed some air trapping (?bronchiolitis) but no PE. CTs of the head, abd, and pelvis were without acute abnormalities. She has mild hyperkalemia at 5.2 which resolved spontaneously overnight. Her CXR was clear. Her COVID-19 rapid test was negative initially. It was repeated because of her persistently elevated D-Dimer (3430 -> 3360) and was again negative. She had no pedal edema, dyspnea, CP, or cough. BCx are negative so far. She has a leukocytosis (16.4 today) but no clear signs of any infectious process; this is thought to be related either to the process causing her rash or the steroids she is taking to help with her Sx. An inflammatory panel was sent from the ED but is not yet resulted. Assessment: The pt improved well overnight, and is now back to her baseline mental status. She denies any respiratory Sx today. She is still without CP, edema, palpitations, abd pain, dysuria, fever, or chills. She still has the rash, though this seems to be slowly improving. Bx results are not available at this time from Dermatology. She is overall feeling well and would like to discharge today, which is reasonable given her negative repeat COVID swab. We will plan to send her home on the remainder of her Z-pack and resume all of her home meds, including the Prednisone from Dermatology. She will f/u with me tomorrow morning in clinic to repeat labs (BMP, D-Dimer, CBC with diff, UA/UCx) and discuss an outpatient MRI of her brain to look for CVA or autoimmune changes. We can check to see if her inflammatory panel results are back at that time. We will also discuss possible referrals to Neurology and/or Rheumatology. Her breathing is at baseline off meds, as is her mental status. We will continue to work with her CV surgeon to try and get her cleared for her TAVR and will f/u with Dermatology for Bx results BARBARA. She can be discharged home and may resume her normal activities and diet at this time. VTE/DVT/PE Information - Contraindications VTE Overlap Therapy Contraindication at Discharge: Treatment not indicated
[2020-02-04 12:57] VITALS: BP 126/78; TEMP 97.9; O2SAT 96
[2020-02-04] MEDS ORDERED: PANTOPRAZOLE SODIUM TAB 40 MG PO SCH (21:00)
== END 2020-02-04 13:00 | disposition home or self-care (01) ==
LOC: ER 17:10 → MS 21:31
PROVIDERS: ADMIT Nurse Practitioner; ATTEND Family Medicine
DX: F05 Delirium due to known physiological condition (principal); R41.82 Altered mental status, unspecified; J21.9 Acute bronchiolitis, unspecified; R21 Rash and other nonspecific skin eruption; E87.5 Hyperkalemia; D72.829 Elevated white blood cell count, unspecified; I35.0 Nonrheumatic aortic (valve) stenosis; R50.9 Fever, unspecified; E83.42 Hypomagnesemia; N28.9 Disorder of kidney and ureter, unspecified; Z11.59 Encounter for screening for other viral diseases; E11.9 Type 2 diabetes mellitus without complications; I10 Essential (primary) hypertension; E78.5 Hyperlipidemia, unspecified; K21.9 Gastro-esophageal reflux disease without esophagitis; K44.9 Diaphragmatic hernia without obstruction or gangrene; K43.9 Ventral hernia without obstruction or gangrene; K57.30 Diverticulosis of large intestine without perforation or abscess without bleeding; Z79.84 Long term (current) use of oral hypoglycemic drugs; Z79.899 Other long term (current) drug therapy
CPT/HCPCS: 96361; 96366; 96367; 96365; 96375; 96372; Q0144; J8540; Q0163 ×2; J2543; J7512; J7030 ×2; J7050 ×3; J1650; J0456; A4216; J3475; 85379 ×2; 80048; 82553; 80053; 82948 ×2; 86038; 84550; 85651; 86431; 86140; 86060; 36415 ×2; 81001; 85025 ×2; 82550; 87040 ×2; 83735; 85730; 85610; 84443; 84484; 83880; 86021 ×2; 36416; 83605; 71045; 70450; 71275; 74177; 94760; 99285; 93005; G0378; 87635 ×2

== ENCOUNTER → 2020-02-10 | Outpatient (CLI) | payer MEDICARE, OTHER ==
--- NOTE | 2020-02-10 10:37 | MRI ---
EXAM DESCRIPTION: Brain w/o Contrast: MRI. CLINICAL HISTORY: ALTERED MENTAL STATUS COMPARISON: CT scan of the head without contrast February 02. TECHNIQUE: Multiplanar, high-field MRI unit, multiple diffusion sequences, multiple conventional sequences without contrast. FINDINGS: Multiple foci of bright diffusion fat saturation signal in the subcortical white matter and cortical bernabe matter of the posterior left parietal lobe, and the bilateral occipital lobes in the parasagittal regions. These extend toward the vertex, and are associated with hyperintense signal on gradient echo, FLAIR sequences, axial T2-weighted sequence. Multiple other foci of hyperintense FLAIR and T2-weighted signal in the periventricular white matter and bernabe/sub-cortical white matter junctions of the cerebral hemispheres. . No diffusion restriction. No hemorrhage, no cerebral edema, no midline shift.. Single hyperintense focus similar to described above, in the posterior superior left basal ganglia. No hemorrhage, no cerebral edema, no mass-effect at least one focus of hyperintense signal in the left cerebellar hemisphere, and a larger focus in the right cerebellar hemisphere. No hemorrhage, no cerebral edema, no mass-effect. Normal signal in the brainstem. No other regions of the brain demonstrating diffusion restriction. Cortical sulci, ventricles, and other CSF spaces, and the subdural spaces are consistent with patient's age. No effacement or displacement. No midline shift. No extra-axial hemorrhage. Normal flow signal void in the major vessels of the [place], and the venous sinuses. IACs are symmetric bilaterally. Normal signal in the bilateral mastoid air cells. No mass effect in the bilateral cerebellopontine angles. Pituitary gland occupies approximately 50% of the sella. Base of the cerebellar tonsils is at the level of the foramen magnum. Minimal chronic paranasal sinusitis.. The bony calvarium is intact. IMPRESSION: 1. Multi focal regions of diffusion restriction in the bilateral occipital lobes and the posterior left parietal lobe at the level of the ventricles and more superiorly. 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 Less likely to represent an inflammatory process, or vasculitis. Metastatic lesions unlikely with no cerebral edema present. No hemorrhage or mass effect. 2. Age-related white matter disease along with cerebral microvascular disease involving the 3 major lobes of the brain bilaterally and less involvement of the temporal lobe. No other regions of diffusion restriction. CRITICAL COMMUNICATION: The critical value was communicated directly by Dr. Hess via phone call, with Dr. Carlos Hein, at approximately 1025 hours, on February 10, 2020. Electronically signed by: Jorge Alberto Hess MD 02/10/2020 10:36 AM CDT
== END ==
LOC: MRI 07:00
PROVIDERS: ATTEND Family Medicine
DX: I67.9 Cerebrovascular disease, unspecified (principal); R90.82 White matter disease, unspecified; G93.9 Disorder of brain, unspecified; R41.82 Altered mental status, unspecified

== ENCOUNTER → 2020-04-10 | Outpatient (CLI) | payer MEDICARE, OTHER | LOC: GMAE 11:17 | PROVIDERS: ATTEND Family Medicine | DX: I10 Essential (primary) hypertension (principal); E11.9 Type 2 diabetes mellitus without complications; E78.5 Hyperlipidemia, unspecified ==

== ENCOUNTER → 2020-05-12 | Outpatient (CLI) | payer MEDICARE, OTHER | LOC: GMAE 10:40 | PROVIDERS: ATTEND Family Medicine | DX: D50.9 Iron deficiency anemia, unspecified (principal) ==

== ENCOUNTER 2020-05-18 18:40 | Inpatient (IN) | payer MEDICARE, OTHER ==
[2020-05-18] MEDS ORDERED: SODIUM CHLORIDE 0.9% (FLUSH) 10 ML SYG IV PRN ×2 (19:01→23:24)
[2020-05-18] MEDS ORDERED: diphenhydrAMINE HCL 50 MG/ML VIAL IV PRN (19:02)
[2020-05-18] MEDS ORDERED: methylPREDNISolone SODIUM SUC 125 MG/2 ML VIAL IV ONE (19:04)
--- NOTE | 2020-05-18 19:35 | ED.PDOC ---
History of Present Illness - General Chief Complaint: Respiratory Problem Stated Complaint: SOB Time Seen by Provider: 05/18/20 19:01 Source: patient, RN notes reviewed, Vital Signs reviewed, family - Exam Limitations: no limitations - History of Present Illness Initial Comments: Patient is a 74-year-old white female who presents with complaints of worsening shortness of breath. Patient has had shortness of breath off and on for the last 6 months but it markedly worsened today. Patient had a TAVR performed approximately 1 month ago. Patient was noted to be anemic and was sent in for a iron transfusion today at the infusion center. After the infusion, patient noted that she was more short of breath. Additionally, 3 days ago, patient was so short of breath that she could not lay down to go to sleep and had to sit up all night long in her recliner. This was on Monday. On Monday she had no difficulty sleeping in her bed. Her shortness of breath is worse with exertion or if she lays down. Nothing in particular seems to make it better except when she sits up. Patient denies any chest pain. Timing/Duration: getting worse, intermittent, other - 3 days Severity: moderate Improving Factors: rest, other - sitting up Worsening Factors: movement, other - laying supine Associated Symptoms: shortness of breath, weakness Allergies/Adverse Reactions: Allergies NO KNOWN ALLERGY Allergy (Verified 02/03/20 23:47) Home Medications: Ambulatory Orders metFORMIN HCL [Glucophage] 500 mg PO BID 08/02/13 Atorvastatin Calcium 40 mg PO DAILY 12/19/18 Pantoprazole Sodium 40 mg PO BEDTIME 12/19/18 Metoprolol Succinate [Metoprolol Succinate ER] 25 mg PO DAILY 02/03/20 Omeprazole 20 mg PO BID 02/03/20 Clopidogrel Bisulfate 75 mg DAILY 05/18/20 Review of Systems - Review of Systems Constitutional: States: see HPI, malaise, weakness. Denies: chills, fever EENTM: States: no symptoms reported. Denies: eye pain, blurred vision, double vision Respiratory: States: see HPI, orthopnea, short of breath. Denies: stridor, wheezing Cardiology: States: no symptoms reported. Denies: chest pain, palpitations, syncope Gastrointestinal/Abdominal: States: no symptoms reported. Denies: abdominal pain, diarrhea, nausea, vomiting Genitourinary: States: no symptoms reported. Denies: dysuria, frequency Musculoskeletal: States: no symptoms reported. Denies: back pain, joint pain, neck pain Skin: States: change in color - pallor Neurological: States: see HPI, weakness. Denies: tingling, tremors Endocrine: States: no symptoms reported, increased hunger, increased thirst, increased urine Hematologic/Lymphatic: States: see HPI, anemia All other Systems: No Change from Baseline Past Medical History (General) - Patient Medical History Hx Seizures: No Hx Stroke: Yes - Stroke in the past 2 months. Hx Dementia: No Hx Asthma: No Hx of COPD: No Hx Cardiac Disorders: Yes - Arortic heart valve replacement one month ago. Hx Congestive Heart Failure: No Hx Pacemaker: No Hx Hypertension: Yes Hx Thyroid Disease: No Hx Diabetes: Yes Hx Gastroesophageal Reflux: No Hx Renal Disease: No Hx Cancer: No Hx of HIV: No Hx Hepatitis C: No Hx MRSA: No Surgical History: cholecystectomy, Hysterectomy, other - Vaccination History Hx Tetanus, Diphtheria Vaccination: Yes Hx Influenza Vaccination: Yes Hx Pneumococcal Vaccination: Yes - Social History Hx Tobacco Use: No Hx Chewing Tobacco Use: No Hx Alcohol Use: No Hx Substance Use: No Hx Substance Use Treatment: No Hx Depression: No Feels Threatened In Home Enviroment: No Feels Threatened In a Relationship: No Hx Physical Abuse: No Hx Emotional Abuse: No Hx Suspected Abuse: No - Female History Patient is a Female of Child Bearing Age (10 -59 yrs old): No - Triage Comment ED Triage Comment: The patient had one and two word dyspnea and was unable to lay back in bed due to her shortness of breath. She denied chest pain and nausea and though short of breath was not in distress. Room air O2 was 88. She was placed on 2lpm NC and the O2 was 94. She was able to answer all questions and had noted decrease in shortness of breath once on NC at 2lmp. Family Medical History - Family History Mother Living Status: Hx Family Stroke: Yes Hx Cardiac Disease: Yes Hx Family Cancer: Yes - larynx Father Living Status: Hx Cardiac Disease: Yes Brother Living Status: Hx Cardiac Disease: Yes Physical Exam - Physical Exam General Appearance: Alert, Anxious, Obvious distress, Well Developed, Well Groomed, Well Hydrated, Well Nourished, Other - pt is pale and dyspneic Ears, Nose, Throat: hearing grossly normal, normal ENT inspection, normal pharynx Neck: non-tender, full range of motion, supple Respiratory: chest non-tender, lungs clear, normal breath sounds, no respiratory distress, no accessory muscle use Cardiovascular/Chest: normal peripheral pulses, no gallop, tachycardia, systolic murmur - 2/6, loudest at right upper sternal border. , other - mild peripheral edema, 1+ to mid shins Peripheral Pulses: radial,right: 2+, radial,left: 2+ Gastrointestinal/Abdominal: normal bowel sounds, non tender, distended Back Exam: normal inspection, no CVA tenderness, no vertebral tenderness Extremity: normal range of motion, non-tender, swelling - 1+ to mid shins. Neurologic: linen manager II-XII nml as tested, no motor/sensory deficits, alert, normal mood/affect, oriented x 3 Skin Exam: warm/dry, pallor Lymphatic: no adenopathy Progress - Progress Progress: Differential diagnosis: CHF, acute LA, pneumonia, allergic reaction among others. 05/18/20 21:20 Patient with PND and symptoms consistent with CHF and volume overload. Chest x- ray is consistent also with CHF. Patient has an elevated BNP. I suspect this is all secondary to her recent TAVR will admit for IV Lasix and further evaluation. I discussed this with the patient and her and they voiced understanding and agreement. I discussed this with Maricel Martinez NP, and she accepts the patient for admission. Mazin Hinton M.D. #[id number] - Results/Orders Results/Orders: EKG performed 18 May 2020 at 1839 hrs.: Normal sinus rhythm at 100 bpm, left atrial enlargement, septal infarct age indeterminate, poor R wave progression, abnormal EKG. No comparison EKG available at this time. 05/18/20 19:01 IV Care:Saline Lock per Protoc QSHIFT Telemetry ONCE Sodium Chloride 0.9% (Flush) [Saline Flush Syringe] 3 ml IV PRN PRN 05/18/20 19:02 diphenhydrAMINE HCL [Benadryl] 12.5 mg IV ONCE PRN 05/18/20 19:15 EKG STAT 05/18/20 19:35 URINE CULTURE W/COLONY COUNT Stat 05/18/20 20:52 RAPID SARS-CoV-2 RNA Stat 05/18/20 21:01 RESPIRATORY PANEL 2 Stat 05/19/20 09:00 Pulse Ox Daily Laboratory Results - last 24 hr 05/18/20 05/18/20 19:15 19:35 WBC 10.1 RBC 3.59 L Hgb 8.2 L Hct 26.5 L MCV 73.8 L MCH 22.8 L MCHC 30.9 L RDW 21.2 H Plt Count 395 MPV 8.1 Absolute Neuts (auto) 6.30 Absolute Lymphs (auto) 2.80 Absolute Monos (auto) 0.70 Absolute Eos (auto) 0.20 Absolute Basos (auto) 0.10 Neutrophils % 62.4 Lymphocytes % 27.2 Monocytes % 6.7 Eosinophils % 2.5 Basophils % 1.2 PT 10.1 INR 1.02 PTT (SP) 23.3 Sodium 141 Potassium 3.1 L Chloride 107 Carbon Dioxide 22 Anion Gap 15.1 BUN 13 Creatinine 0.60 BUN/Creatinine Ratio 21.7 H Random Glucose 160 H Serum Osmolality 284.8 Calcium 8.5 Magnesium 1.6 L Total Bilirubin 1.0 Direct Bilirubin 0.1 Indirect Bilirubin 0.9 H AST 21 ALT 14 Alkaline Phosphatase 66 Creatine Kinase 44 CK-MB (CK-2) 2.7 CK-MB (CK-2) % Not Reportable Troponin I 0.04 B-Natriuretic Peptide 1460.0 H* Serum Total Protein 7.0 Albumin 4.0 Urine Color Yellow Urine Appearance Sl cloudy Urine pH 5.0 Ur Specific [place] 1.025 Urine Protein Negative Urine Glucose (UA) Negative Urine Ketones Negative Urine Blood Trace-intact H Urine Nitrite Positive H Urine Bilirubin Negative Urine Urobilinogen 1.0 Ur Leukocyte Esterase Small H Urine RBC 1-3 Urine WBC 5-10 H Ur Epithelial Cells 1-3 Urine Bacteria 3+ H EXAM DESCRIPTION: Chest,1 View CLINICAL HISTORY: 74 years Female, dyspnea COMPARISON: 02/03/2020 TECHNIQUE: Single AP chest radiograph. FINDINGS: Cardiomegaly. Status post cardiac valvular replacement. Aortic arch atherosclerosis. Hiatal hernia. Bilateral basilar predominant hazy pulmonary opacities with bilateral pleural effusions. Pulmonary vascular congestion. No pneumothorax. IMPRESSION: 1. Cardiomegaly with pulmonary edema/congestion changes and bilateral pleural effusions, consistent with CHF. Superimposed infection not excluded. Electronically signed by: Jeb Rea MD 05/18/2020 7:31 PM Vital Signs 05/18/20 05/18/20 05/18/20 18:44 19:01 19:40 Temperature 97.2 F L Pulse Rate [ 115 H 95 H Pulse OX] Respiratory 22 22 20 Rate Blood Pressure 174/119 184/87 [Left Arm] O2 Sat by Pulse 88 L 94 L Oximetry 05/18/20 05/18/20 20:00 21:00 Temperature Pulse Rate [ 100 H 94 H Pulse OX] Respiratory 20 22 Rate Blood Pressure 148/84 149/81 [Left Arm] O2 Sat by Pulse 95 95 Oximetry Departure - Departure Clinical Impression: Hypoxia CHF (congestive heart failure) Qualifiers: Heart failure type: end stage Qualified Code(s): I50.84 - End stage heart failure Volume overload Qualifiers: Hypervolemia type: unspecified Qualified Code(s): E87.70 - Fluid overload, unspecified Time of Disposition: 21:22 Disposition: Admit Patient Condition: Fair Departure Forms: ED Discharge - Pt. Copy, Patient Portal Self Enrollment Diet: resume usual diet Activity: increase activity as tolerated Referrals: VANESSA CASE MD [Primary Care Provider] - 1-2 Weeks Home Medications: Ambulatory Orders metFORMIN HCL [Glucophage] 500 mg PO BID 08/02/13 Atorvastatin Calcium 40 mg PO DAILY 12/19/18 Pantoprazole Sodium 40 mg PO BEDTIME 12/19/18 Metoprolol Succinate [Metoprolol Succinate ER] 25 mg PO DAILY 02/03/20 Omeprazole 20 mg PO BID 02/03/20 Clopidogrel Bisulfate 75 mg DAILY 05/18/20 Decision To Admit - Decistion To Admit Decision to Admit Date: 05/18/20 Decision to Admit Time: 21:00
[2020-05-18] MEDS ORDERED: FUROSEMIDE INJ 40 MG/4 ML VIAL IV ONE (19:40)
[2020-05-18] MEDS ORDERED: MAGNESIUM SULFATE INJ 1 GM in SODIUM CHLORIDE 0.9% 100ML 100 ML IVPB ONE (20:15)
[2020-05-18] MEDS ORDERED: POTASSIUM CHLORIDE 20 MEQ TAB PO ONE (20:15)
[2020-05-18] MEDS ORDERED: ACETAMINOPHEN 325 MG TAB PO PRN (23:24)
[2020-05-18] MEDS ORDERED: NITROGLYCERIN 0.4 MG 25 EA TAB SL PRN (23:24)
[2020-05-18] MEDS ORDERED: ONDANSETRON INJ 4 MG/2 ML VIAL IV PRN (23:24)
[2020-05-18] MEDS ORDERED: IV SET AND CAP CHANGE INJ INJ SCH (23:30)
[2020-05-18] MEDS ORDERED: DEXTROSE 50% 25 GM/50 ML SYG IV PRN (23:44)
[2020-05-18] MEDS ORDERED: cefTRIAXone SODIUM 1 GM in SODIUM CHL 0.9% 50ML MIN-BAG+ 50 ML IVPB ONE (23:44)
[2020-05-18] MEDS ORDERED: GLUCAGON INJ 1 MG VIAL SUBCU PRN (23:44)
[2020-05-18] MEDS ORDERED: cefTRIAXone SODIUM 1 GM VIAL ONE (23:56)
[2020-05-18] MEDS ORDERED: SODIUM CHL 0.9% 50ML MIN-BAG+ 50 ML IVPB ONE (23:57)
[2020-05-19] MEDS: PANTOPRAZOLE SODIUM IV 40 MG VIAL IV SCH (06:18)
--- NOTE | 2020-05-19 07:19 | RAD ---
CHEST, ONE VIEW XR CLINICAL HISTORY: Congestive heart failure. COMPARISON: 05/18/2020 TECHNIQUE: AP Chest. FINDINGS: Heart is enlarged. Moderate aortic arch atherosclerosis. There is a stent in the region of the aortic root. Left lower lobe consolidation persists with slight interim improvement. There is improving right lower lobe aeration with mild residual infiltrate/atelectasis. Small bilateral pleural effusions are present. There is no edema or pneumothorax. Pulmonary vascular congestion has nearly resolved. Generalized decreased bone mineralization. Significant right shoulder osteoarthritis. Left proximal humerus arthroplasty is intact. IMPRESSION: 1. Nearly resolved vascular congestion. Persistent but improving bilateral lower lobe infiltrates with minimal residual atelectasis. Small bilateral pleural effusions persists. Electronically signed by: Janet Orr DO 05/19/2020 7:17 AM CDT
[2020-05-19] MEDS: INSULIN LISPRO 100 UNITS/ML PEN SUBCU SCH ×4 (07:34→21:49)
[2020-05-19] MEDS: SODIUM CHLORIDE 0.9% (FLUSH) 10 ML SYG IV SCH ×2 (09:32→21:50)
[2020-05-19] MEDS: metFORMIN HCL 500 MG TAB PO SCH ×2 (09:32→17:06)
[2020-05-19] MEDS: CLOPIDOGREL 75 MG TAB PO SCH (09:32)
[2020-05-19] MEDS: METOPROLOL SUCCINATE XL 25 MG TAB PO SCH (09:32)
[2020-05-19] MEDS: FUROSEMIDE INJ 40 MG/4 ML VIAL IV SCH ×2 (09:32→17:06)
[2020-05-19] MEDS ORDERED: LEVALBUTEROL NEBS 1.25 MG/3 ML VIAL NEB PRN (11:25)
[2020-05-19] MEDS: LEVALBUTEROL NEBS 1.25 MG/3 ML VIAL NEB SCH ×3 (11:52→20:19)
[2020-05-19] MEDS: cefTRIAXone SODIUM 1 GM in SODIUM CHL 0.9% 50ML MIN-BAG+ 50 ML IVPB SCH (13:12)
--- NOTE | 2020-05-19 13:33 | HP ---
SUPERVISING PHYSICIAN: Bayron Hein MD CHIEF COMPLAINT: Shortness of breath. HISTORY OF PRESENT ILLNESS: This is a 74 year-old female patient who has a history of an aortic valve replacement in February of this year. She has a history of hypertension, hyperlipidemia and aortic stenosis as well as gastroesophageal reflux disease and diabetes. She had actually been in the hospital outpatient for an iron infusion. Shortly after her infusion she became somewhat short of breath, that Monday night she had a difficult time sleeping and actually had to sit up, she could not lie flat. The next day she started to feel somewhat better but was still very weak and tired. Monday morning, she stayed home and by Monday she felt much better. The shortness of breath had almost dissipated and although she was tired she was much better. She woke up on Monday and her shortness of breath returned. She actually went to a cardiopulmonary appointment at the [facility] and although she did do her usual routine, she was much weaker and more tired. She had checked her pulse ox during this time and her oxygen saturations were from the mid 80s to 91%. By Monday, she was again so short of breath she decided to come to the Emergency Room. In the Emergency Room, her initial vital signs showed a temperature of 97.2 with heart rate of 115, blood pressure 174/119, respiratory rate 22 and oxygen saturation of 88%. Lab studies were done and she had a WBC of 10.1 with hemoglobin of 8.2, hematocrit 26.5. sodium 141, potassium 3.1, chloride 107, BUN 13, creatinine 0.6, glucose 160, calcium 8.5, magnesium 1.6. BNP was 1,460. She did have a significant urinary tract infection with a UA that showed a trace of intact urine blood, positive urine nitrites, small amount of urine leukocyte esterase, 5 to 10 urine WBCs and 3+ urine bacteria. Her Covid panel was negative and her chest x-ray shows cardiomegaly with pulmonary edema/congestion changes and bilateral pleural effusion consistent with congestive heart failure. Superimposed infection is not excluded. She was given some potassium and magnesium as well as some IV Lasix. Her 02 saturations improved slightly but she was still significantly short of breath and I was called for hospital admission. PAST MEDICAL HISTORY: 1. Hyperlipidemia. 2. Severe aortic stenosis. 3. Hypertension. 4. Gastroesophageal reflux disease. 5. Diverticulitis. PAST SURGICAL HISTORY: 1. Hysterectomy. 2. Cataract removal. 3. Aortic valve replacement in February 2020. 4. Three hernia surgeries. 5. Colon resection due to diverticulitis. CURRENT MEDICATIONS: 1. Pantoprazole. 2. Atorvastatin. 3. Plavix. 4. Metformin. 5. Metoprolol. ALLERGIES: Apricots and Ocuvite. FAMILY HISTORY: SOCIAL HISTORY: She lives in [place]. She is . She denies tobacco, ETOH or illicit drug use. REVIEW OF SYSTEMS: GENERAL: Positive for fatigue, negative for fever or weight changes. HEENT: Negative for sinus symptoms, ear pain, vision changes, sore throat. RESPIRATORY: Positive for shortness of breath, negative for coughing, wheezing. CARDIAC: Negative for chest pain, palpitations, tachycardia. GI: Negative for nausea, vomiting, diarrhea or constipation. GENITOURINARY: Negative for hematuria, dysuria, polyuria. MUSCULOSKELETAL: Negative for arthralgias, myalgias. SKIN: Negative for lesions or rashes. EXTREMITIES: Positive or trace of pedal edema. NEUROLOGICAL: Positive for weakness, negative for headaches or seizures. PHYSICAL EXAMINATION: VITAL SIGNS: Temperature 97.2, heart rate 84, blood pressure 148/76, respiratory rate 20, oxygen saturation 95% on 3 liters nasal cannula. Her input was 300, output 800 for a negative balance of 500. GENERAL: This is a 74 year-old female patient who is sitting up in her hospital bed. She is in no acute distress. HEENT: Normocephalic and atraumatic. Pupils are equal and reactive. Oropharynx is clear. NECK: Supple without mass. CHEST: A few scattered crackles throughout, otherwise clear to auscultation. CARDIOVASCULAR: Regular rate and rhythm. ABDOMEN: Soft, nondistended, non-tender,. Bowel sounds are positive. EXTREMITIES: She has a trace of pedal edema bilaterally. Bilateral pedal pulses are palpable at +2. SKIN: [place], warm and dry. NEUROLOGIC: She is awake, alert, and oriented x3. Cranial nerves II through XII are grossly intact as tested. LABORATORY: Her followup morning lab shows a WBC of 7.6, hemoglobin 8.4, hematocrit 27. She does have a left shift on her differential. Electrolytes are basically within normal limits. Liver enzymes are within normal limits. Her urine culture is pending. Blood cultures are pending. RADIOLOGY: Her followup chest x-ray is: Nearly resolved vascular congestion versus somewhat improving bilateral lower lobe infiltrates with minimal residual atelectasis, small bilateral pleural effusions persist. Her echocardiogram shows: 1. Left ventricular ejection fraction estimated by 2D at 45 to 50%. 2. There is mild concentric left ventricular hypertrophy. 3. Mildly reduced left ventricular function. 4. Mild mitral valve regurgitation. 5. Mild mitral stenosis. 6. Mildly elevated estimated right ventricular systolic pressure. 7. Bioprosthetic aortic valve with normal function. All other labs and films have been reviewed via the EMR. ASSESSMENT: 1. Acute exacerbation of congestive heart failure, diastolic and systolic in etiology with an ejection fraction of 45 to 50% per echocardiogram today. Her BNP was greater than 1400. 2. Sepsis related to urinary tract infection with an oxygen saturation of 88%, heart rate of 115, respiratory rate 22. 3. Concerns for developing bilateral pneumonia per x-ray, may be contributing to her sepsis. 4. Diabetes mellitus type 2. 5. Hypertension. 6. Hyperlipidemia. 7. Aortic stenosis. 8. Gastroesophageal reflux disease. PLAN: The patient has been admitted to the hospital, Congestive heart failure guidelines have been initiated. She will be on IV Lasix and we will watch her output closely. At this point, she is only on a beta alvaro and she may benefit from a low-dose of an jerad inhibitor but she is closely followed by Dr. Sosa. hospital unit clerk in [facility] and if she continues to clinically improve will hold on that for now. She will have Rocephin for urinary tract infection and I have added azithromycin due to the underlying possibility of an infectious process in her lungs. Her home medications will be restarted. I will also start her on sliding scale insulin per protocol. She will have a PPI for ulcer prophylaxis and Lovenox for DVT prophylaxis. I will transition her from IV to oral Lasix as soon as possible and there is a question if she should go home on a small amount of Lasix or not but again, I will watch her clinical process and we will go from there. #[id number] [facility]
[2020-05-19] MEDS: AZITHROMYCIN IV 500 MG in SODIUM CHLORIDE 0.9% 250ML 250 ML IVPB SCH (13:52)
[2020-05-19] MEDS: ATORVASTATIN 20 MG TAB PO SCH (21:48)
[2020-05-19] MEDS: guaiFENesin ER TAB 600 MG TAB PO SCH (21:48)
[2020-05-19] MEDS: ENOXAPARIN SODIUM 40 MG/0.4 ML SYG SUBCU SCH (21:50)
[2020-05-20] MEDS: PANTOPRAZOLE SODIUM IV 40 MG VIAL IV SCH (06:17)
[2020-05-20] MEDS: LEVALBUTEROL NEBS 1.25 MG/3 ML VIAL NEB SCH ×4 (07:15→20:08)
--- NOTE | 2020-05-20 07:26 | RAD ---
: 1945. Technique: Portable AP upright chest x-ray. Comparison: May 19, 2020. Clinical history: chf. Heart size: Heart size is enlarged. Aortic stent valve. Lungs: Vascular congestion. Patchy consolidative infiltrates at the left lung base is seen. There is small atelectasis on the right. Pleura: Left pleural effusion. Right costophrenic angle is no longer blunted from resolved pleural fluid. No pneumothorax. Mediastinum and shahla: Calcified aortic arch. Skeletal: Left shoulder arthroplasty. Right shoulder arthrosis with humeral remodeling. Support tubings: None. Impression: 1. Cardiomegaly. 2. Left lower lobe pneumonia/atelectasis and pleural effusion. Right basilar atelectasis. Electronically signed by: Nitesh Roger MD 05/20/2020 7:25 AM CDT
[2020-05-20] MEDS: INSULIN LISPRO 100 UNITS/ML PEN SUBCU SCH ×4 (07:30→21:20)
[2020-05-20] MEDS: metFORMIN HCL 500 MG TAB PO SCH ×2 (08:45→17:40)
[2020-05-20] MEDS: METOPROLOL SUCCINATE XL 25 MG TAB PO SCH (08:45)
[2020-05-20] MEDS: SODIUM CHLORIDE 0.9% (FLUSH) 10 ML SYG IV SCH ×2 (08:46→20:37)
[2020-05-20] MEDS: FUROSEMIDE 40 MG TAB PO SCH (08:46)
[2020-05-20] MEDS: guaiFENesin ER TAB 600 MG TAB PO SCH ×2 (08:46→20:36)
[2020-05-20] MEDS: CLOPIDOGREL 75 MG TAB PO SCH (08:46)
[2020-05-20] MEDS: cefTRIAXone SODIUM 1 GM in SODIUM CHL 0.9% 50ML MIN-BAG+ 50 ML IVPB SCH (11:52)
[2020-05-20] MEDS: AZITHROMYCIN IV 500 MG in SODIUM CHLORIDE 0.9% 250ML 250 ML IVPB SCH (13:02)
--- NOTE | 2020-05-20 20:05 | PN ---
SUPERVISING PHYSICIAN: Bayron Hein MD DATE: 05/20/20 SUBJECTIVE: The patient feels like she is doing a little better, breathing has eased up, feels like she has an elephant sitting on her chest. She has not had any complaints of chest pain, nausea or vomiting or diarrhea. She remains afebrile. Her hemoglobin this morning was significantly decreased but she is not having any complaints with any bleeding or any loose stools. OBJECTIVE: VITAL SIGNS: Temperature 97, pulse 80, blood pressure 129/60, respirations 16, oxygen saturation 94% on room air. GENERAL: The patient looks pale but is resting comfortably, still doesn't look to be in any distress. She is currently getting a breathing treatment. CHEST: Lung sounds show no obvious rhonchi, rales, or wheezes. HEART: Regular rate and rhythm. ABDOMEN: Soft, non-tender, positive bowel sounds. EXTREMITIES: Without cyanosis, clubbing, or edema. NEUROLOGICAL: She is alert and oriented x3. LABORATORY: White count 9,900, hemoglobin dropped to 7.7 and hematocrit 24.7 today but RBCs are indicating microcytic hypochromic presentation, platelet count 360,000. Differential today shows to be without a left shift. Coagulation studies show normal PT/PTT. Chemistries - sodium normal, potassium a little low at 3.4, magnesium a little low at 1.5. Liver functions all within normal limits. Glucose was ranging between 101 and 170. MICROBIOLOGY: Urine culture showed Citrobacter Braakii which was sensitive to all but cefazolin. Blood cultures remain negative at 24 hours. RADIOLOGY: Chest x-ray, single view this morning per radiology interpretation shows cardiomegaly with left lower lobe pneumonia/ atelectasis or pleural effusion, right basilar atelectasis. ASSESSMENT: 1. Acute exacerbation of congestive heart failure, diastolic and systolic in etiology with an ejection fraction of 45 to 50% per echocardiogram today. Her BNP was greater than 1400. 2. Sepsis related to urinary tract infection with an oxygen saturation of 88%, heart rate of 115, respiratory rate 22. 3. Concerns for developing bilateral pneumonia per x-ray, may be contributing to her sepsis. 4. Diabetes mellitus type 2. 5. Hypertension. 6. Hyperlipidemia. 7. Aortic stenosis. 8. Gastroesophageal reflux disease. PLAN: We will continue current plan of care with azithromycin and Rocephin. She is on Lasix, sliding scale, Xopenex. I anticipate she probably won't go home until Monday given her significant drop and her frailty. Until then, we will keep her saline locked. She will be on aggressive pulmonary hygiene. In regard to her urinary tract infection, she is covered with Rocephin. Until we can transition him to outpatient management, we will continue to monitor and treat as needed. #[id number]: [facility]
[2020-05-20] MEDS: ATORVASTATIN 20 MG TAB PO SCH (20:35)
[2020-05-20] MEDS: ENOXAPARIN SODIUM 40 MG/0.4 ML SYG SUBCU SCH (20:36)
[2020-05-21] MEDS: PANTOPRAZOLE SODIUM IV 40 MG VIAL IV SCH (06:19)
[2020-05-21] MEDS: INSULIN LISPRO 100 UNITS/ML PEN SUBCU SCH ×2 (08:41→14:26)
[2020-05-21] MEDS: SODIUM CHLORIDE 0.9% (FLUSH) 10 ML SYG IV SCH (08:42)
[2020-05-21] MEDS: METOPROLOL SUCCINATE XL 25 MG TAB PO SCH (08:42)
[2020-05-21] MEDS: guaiFENesin ER TAB 600 MG TAB PO SCH (08:42)
[2020-05-21] MEDS: metFORMIN HCL 500 MG TAB PO SCH (08:42)
[2020-05-21] MEDS: FUROSEMIDE 40 MG TAB PO SCH (08:42)
[2020-05-21] MEDS: CLOPIDOGREL 75 MG TAB PO SCH (08:42)
[2020-05-21] MEDS: LEVALBUTEROL NEBS 1.25 MG/3 ML VIAL NEB SCH ×2 (08:45→15:34)
[2020-05-21] MEDS ORDERED: MAGNESIUM SULFATE PREMIX 2GM 2 GM in PREMIX BAG 1 BAG IVPB ONE (08:45)
[2020-05-21 09:32] VITALS: BP 124/84; TEMP 98
[2020-05-21 12:56] VITALS: O2SAT 97
[2020-05-21] MEDS: cefTRIAXone SODIUM 1 GM in SODIUM CHL 0.9% 50ML MIN-BAG+ 50 ML IVPB SCH (14:26)
--- NOTE | 2020-05-27 08:36 | DS ---
SUPERVISING PHYSICIAN: Chriss Hein MD ADMISSION DIAGNOSIS: 1. Acute exacerbation of congestive heart failure, diastolic and systolic in etiology with an ejection fraction of 45 to 50% per echocardiogram today. Her BNP was greater than 1400. 2. Sepsis related to urinary tract infection with an oxygen saturation of 88%, heart rate of 115, respiratory rate 22. 3. Concerns for developing bilateral pneumonia per x-ray, may be contributing to her sepsis. 4. Diabetes mellitus type 2. 5. Hypertension. 6. Hyperlipidemia. 7. Aortic stenosis. 8. Gastroesophageal reflux disease. DISCHARGE DIAGNOSIS: 1. Acute exacerbation of congestive heart failure, diastolic and systolic in etiology with an ejection fraction of 45 to 50% per echocardiogram today. Her BNP was greater than 1400. 2. Sepsis related to urinary tract infection secondary to Citrobacter braakii with an oxygen saturation of 88%, heart rate of 115, respiratory rate 22. 3. Concerns for developing bilateral pneumonia per x-ray, may be contributing to her sepsis. 4. Diabetes mellitus type 2. 5. Hypertension. 6. Hyperlipidemia. 7. Aortic stenosis. 8. Gastroesophageal reflux disease. REASON FOR HOSPITALIZATION: This is a 74 year-old female patient who has a history of an aortic valve replacement in February of this year. She has a history of hypertension, hyperlipidemia and aortic stenosis as well as gastroesophageal reflux disease and diabetes. She had actually been in the hospital outpatient for an iron infusion. Shortly after her infusion she became somewhat short of breath, that Monday night she had a difficult time sleeping and actually had to sit up, she could not lie flat. The next day she started to feel somewhat better but was still very weak and tired. Monday morning, she stayed home and by Monday afternoon she felt much better. The shortness of breath had almost dissipated and although she was tired she was much better. She woke up on Monday and her shortness of breath returned. She actually went to a cardiopulmonary appointment at the [facility] and although she did do her usual routine, she was much weaker and more tired. She had checked her pulse ox during this time and her oxygen saturations were from the mid 80s to 91%. By Monday evening, she was again so short of breath she decided to come to the Emergency Room. In the Emergency Room, her initial vital signs showed a temperature of 97.2 with heart rate of 115, blood pressure 174/119, respiratory rate 22 and oxygen saturation of 88%. Lab studies were done and she had a WBC of 10.1 with hemoglobin of 8.2, hematocrit 26.5. sodium 141, potassium 3.1, chloride 107, BUN 13, creatinine 0.6, glucose 160, calcium 8.5, magnesium 1.6. BNP was 1,460. She did have a significant urinary tract infection with a UA that showed a trace of intact urine blood, positive urine nitrites, small amount of urine leukocyte esterase, 5 to 10 urine WBCs and 3+ urine bacteria. Her COVID panel was negative and her chest x-ray shows cardiomegaly with pulmonary edema/congestion changes and bilateral pleural effusion consistent with congestive heart failure. Superimposed infection is not excluded. She was given some potassium and magnesium as well as some IV Lasix. Her 02 saturations improved slightly but she was still significantly short of breath and I was called for hospital admission. LABORATORY: Hemoglobin on discharge was 8.2, hematocrit 25.8. White count 9,900. Differential was without a left shift. Coagulation studies studies showed normal PT/PTT. Chemistries on discharge showed potassium 3.4, otherwise electrolytes were within normal limits. Creatinine 0.6. Blood sugars ranged between 101 and 161. Magnesium was 1.5 and was replaced. Prior to discharge, urinalysis showed positive nitrites, trace of blood, small leukocyte esterase, 1 to 3 RBCs, 5 to 10 WBCs, 1 to 3 epithelials, 3+ bacteria. MICROBIOLOGY: Final culture results showed Citrobacter braakii, resistant to only cephazolin, otherwise sensitive to all other medications. Blood cultures remain negative after 5 days. Respiratory panel PCR was negative for all bacterial and viral targets including COVID and influenza. RADIOLOGY: Chest x-ray on 05/20/20 showed cardiomegaly with left lower lobe pneumonia and pleural effusion with right basilar atelectasis per radiologic interpretation. Echocardiogram showed ejection fraction 40-45%. There was also note of bioprosthetic aortic valve with normal function. Please see that report for full details. 12-lead EKG showed a normal sinus rhythm without any ST or T- wave changes to indicate acute ischemia. HOSPITAL COURSE: Ms. Hurt was admitted and treated for underlying urinary tract infection with pneumonia. She was given Rocephin and azithromycin. She was on Lasix sliding scale and given Xopenex. She was kept on saline lock and fluid restrictions. She had shown good clinical improvement on day of discharge. Therefore, it was felt she could be managed as an outpatient for continued treatment and was discharged to followup with her primary care provider, Dr. Hein. On day of discharge, vital signs were stable with room air saturation of 97%, blood pressure 124/84, temperature 98, pulse 80. PLAN: Ms. Hurt was discharged on 05/21/[address] Hein on 05/26/20. She is to resume diabetic diet and increase activities as tolerated. She was to take prescriptions as prescribed including albuterol 2 puffs q.4h. as needed, #1 inhaler, cefdinir 300 mg twice daily, #14, no refills, and all other medications as prior to hospitalization. CONDITION DISCHARGE: Stable and improved. DISPOSITION: The patient was discharged home. #[id number] MTDD
== END 2020-05-21 12:45 | disposition home or self-care (01) | DRG 871 ==
LOC: ER 18:40 → OBSVTOIN 23:18 → MS 23:18
PROVIDERS: ADMIT Nurse Practitioner Acute Care; ATTEND Nurse Practitioner Family
DX: A41.9 Sepsis, unspecified organism (principal); J18.9 Pneumonia, unspecified organism; N39.0 Urinary tract infection, site not specified; I50.43 Acute on chronic combined systolic (congestive) and diastolic (congestive) heart failure; I11.0 Hypertensive heart disease with heart failure; E11.9 Type 2 diabetes mellitus without complications; E78.5 Hyperlipidemia, unspecified; Z95.3 Presence of xenogenic heart valve; K21.9 Gastro-esophageal reflux disease without esophagitis; Z90.49 Acquired absence of other specified parts of digestive tract; I05.2 Rheumatic mitral stenosis with insufficiency

== ENCOUNTER → 2020-07-02 | Outpatient (CLI) | payer MEDICARE, OTHER ==
--- NOTE | 2020-07-03 10:06 | RAD ---
XR SHOULDER 2 OR MORE VIEWS HISTORY: 74 years Female pain in right shoulder COMPARISON: None. TECHNIQUE: 4 views of the right shoulder. FINDINGS: No acute fracture or dislocation observed. There is marked bony remodeling of the humeral head with flattening of the glenohumeral joint articular margins, suggesting possible prior injury or osteonecrosis. Osseous structures otherwise appear intact. No evidence of acute fracture or dislocation. Right acromioclavicular joint appears within normal limits. Acromiohumeral interval appears within normal limits. Atherosclerotic changes are present in the thoracic aorta. 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 Findings may represent sequelae of prior injury or osteonecrosis. Electronically signed by: Franck Izaguirre MD 07/03/2020 10:04 AM [facility]
== END ==
LOC: RAD 10:42
PROVIDERS: ATTEND Orthopaedic Surgery
DX: M19.011 Primary osteoarthritis, right shoulder (principal); M89.9 Disorder of bone, unspecified

== ENCOUNTER → 2020-07-08 | Outpatient (CLI) | payer MEDICARE, OTHER | LOC: GMAE 10:53 | PROVIDERS: ATTEND Family Medicine | DX: D50.9 Iron deficiency anemia, unspecified (principal) ==

== ENCOUNTER 2020-08-25 10:19 | Emergency (ER) | payer MEDICARE, OTHER ==
--- NOTE | 2020-08-25 11:45 | CT ---
EXAM DESCRIPTION: Cervical Spine CLINICAL HISTORY: FELL. FACE HIT FLOOR. FACE NECK PAIN. ON PLAVIX. COMPARISON: None available. TECHNIQUE: Axial noncontast CT of the cervical spine with coronal and sagittal reformats. This exam was performed according to our departmental dose-optimization program, which includes automated exposure control, adjustment of the mA and/or kV according to patient size and/or use of iterative reconstruction technique. FINDINGS: Cervical vertebral body heights are maintained. Straightening of the normal cervical lordosis. Degenerative trace anterolisthesis of C3 on C4, C4-C5, and C5 on C6. No acute fracture or posttraumatic positional abnormality of the cervical spine. Severe facet hypertrophic and degenerative changes are seen left greater than right from C2 through C6 most significant at C5-6. Moderate to severe foraminal encroachment from C2 through C7 is seen left greater than right. Moderate calcified plaque of the carotid bulb to proximal internal carotid arteries seen bilaterally. Mild emphysematous changes in lung apices. No pathologic lymphadenopathy. Visualized skull base is unremarkable. Severe calcifications of the intracranial carotid and vertebral arteries. IMPRESSION: No CT evidence of acute fracture or posttraumatic positional abnormality of the cervical spine. Mild to moderate disc degenerative disease with moderate to severe facet arthropathy of the cervical spine is seen. Electronically signed by: Marky Hernandez MD 08/25/2020 11:43 AM [employer]
--- NOTE | 2020-08-25 11:46 | CT ---
EXAM DESCRIPTION: Head CLINICAL HISTORY: FELL. FACE HIT FLOOR. FACE NECK PAIN. ON PLAVIX. COMPARISON: February 03, 2020 TECHNIQUE: Noncontrast transaxial CT images of the head are obtained from base to vertex. This exam was performed according to our departmental dose-optimization program, which includes automated exposure control, adjustment of the mA and/or kV according to patient size and/or use of iterative reconstruction technique. FINDINGS: The midline structures are not displaced. Sulci are age-appropriate. There are areas of decreased attenuation in the periventricular white matter and the white matter of the centrum semiovale. There is no evidence of mass, mass-effect, hydrocephalus, or acute intracranial hemorrhage. No abnormal extra axial fluid collection is seen. Bone windows show no evidence of depressed skull fracture. Severe calcifications of the intracranial carotid and vertebral arteries. The visualized paranasal sinuses are unremarkable. IMPRESSION: 1. Age-appropriate atrophy with evidence of old small vessel ischemic type changes seen. 2. No acute abnormality is seen on noncontrast CT of the head. Electronically signed by: Marky Hernandez MD 08/25/2020 11:45 AM [facility]
--- NOTE | 2020-08-25 11:47 | RAD ---
EXAM DESCRIPTION: Hand,Right 2 Views CLINICAL HISTORY: FELL. R 5TH DIGIT/LITTLE FINGER PAIN COMPARISON: None. IMPRESSION: 2 views of the right hand show diffuse osteopenia the osseous structures. No acute fracture, focal bone destruction, or joint dislocation. Mild to moderate osteoarthritic changes of the interphalangeal joints, metacarpophalangeal joints, and first carpometacarpal joint are seen. Calcification of the TFC suggests chondrocalcinosis. Electronically signed by: Marky Hernandez MD 08/25/2020 11:45 AM [facility]
--- NOTE | 2020-08-25 12:11 | ED.PDOC ---
History of Present Illness - General Chief Complaint: Trauma Stated Complaint: s/p fall Time Seen by Provider: 08/25/20 10:42 Source: patient, family Exam Limitations: no limitations - History of Present Illness Initial Comments: FELL AT HOME, INSIDE. TRIPPED/SLIPPED ON KITCHEN FLOOR. FACE COLLIDED WITH FLOOR. C/O PAIN IN FACE, NECK SORE, R LITTLE FINGER HURTS. DENIES PAIN ANYWHERE ELSE. NO LOC. NO AMS. NO LIGHT-HEADEDNESS (SHOE JUST CAUGHT ON THE KITCHEN ELEVATED PORTION OF FLOOR). RECALLS ENTIRE EVENT. TAKES PLAVIX FOR MECHANICAL AORTIC VALVE REPLACED FEB 2020. Severity: moderate Improving Factors: rest Worsening Factors: movement Associated Symptoms: denies symptoms Allergies/Adverse Reactions: Allergies Ascorbate [From Ocuvite] Allergy (Verified 05/18/20 23:44) Rash Beta-Carotene [From Ocuvite] Allergy (Verified 05/18/20 23:44) Rash Copper [From Ocuvite] Allergy (Verified 05/18/20 23:44) Rash Selenium [From Ocuvite] Allergy (Verified 05/18/20 23:44) Rash Vitamin A [From Ocuvite] Allergy (Verified 05/18/20 23:44) Rash Vitamin E [From Ocuvite] Allergy (Verified 05/18/20 23:44) Rash Zinc [From Ocuvite] Allergy (Verified 05/18/20 23:44) Rash apricot Allergy (Uncoded 05/18/20 23:44) Rash Home Medications: Ambulatory Orders metFORMIN HCL [Glucophage] 500 mg PO BID 08/02/13 Atorvastatin Calcium 20 mg PO DAILY 12/19/18 Pantoprazole Sodium 40 mg PO BEDTIME 12/19/18 Metoprolol Succinate [Metoprolol Succinate ER] 25 mg PO DAILY 02/03/20 Clopidogrel Bisulfate 75 mg DAILY 05/18/20 Aspirin [Kalin Low Dose] 81 mg PO BID 08/25/20 Ferrous Sulfate Dried [Iron Slow Release] 45 mg PO BEDTIME 08/25/20 Review of Systems - Review of Systems Constitutional: Denies: chills, fever EENTM: States: nose pain. Denies: blurred vision, ear pain, mouth pain Respiratory: Denies: cough, short of breath Cardiology: Denies: chest pain, palpitations Gastrointestinal/Abdominal: Denies: nausea, vomiting Genitourinary: Denies: dysuria, frequency, pain Musculoskeletal: States: joint pain - R LITTLE FINGER, neck pain - MILD. Denies: back pain Skin: Denies: lesions, lumps, rash Neurological: Denies: headache, paresthesia, weakness Endocrine: Denies: excessive sweating, flushing Hematologic/Lymphatic: Denies: easy bleeding, easy bruising All other Systems: Reviewed and Negative Past Medical History (General) - Patient Medical History Hx Seizures: No Hx Stroke: Yes - mini stroke in january Hx Dementia: No Hx Asthma: No Hx of COPD: No Hx Cardiac Disorders: Yes Hx Congestive Heart Failure: Yes Hx Pacemaker: No Hx Hypertension: Yes Hx Thyroid Disease: No Hx Diabetes: Yes Hx Gastroesophageal Reflux: No Hx Renal Disease: No Hx Cancer: No Hx of HIV: No Hx Hepatitis C: No Hx MRSA: No Surgical History: colectomy, Hysterectomy - Vaccination History Hx Tetanus, Diphtheria Vaccination: Yes Hx Influenza Vaccination: Yes Hx Pneumococcal Vaccination: Yes - Social History Hx Tobacco Use: No Hx Chewing Tobacco Use: No Hx Alcohol Use: No Hx Substance Use: No Hx Substance Use Treatment: No Hx Depression: No Hx Physical Abuse: No Hx Emotional Abuse: No Hx Suspected Abuse: No Family Medical History - Family History Mother Living Status: Hx Family Stroke: Yes Hx Cardiac Disease: Yes Hx Family Cancer: Yes - larynx Father Living Status: Hx Cardiac Disease: Yes Brother Living Status: Hx Cardiac Disease: Yes Physical Exam - Physical Exam General Appearance: Alert, Well Developed Eye Exam: bilateral normal Ears, Nose, Throat: hearing grossly normal, normal pharynx, other - BL LIPS SWOLLEN BUT NOT LACERATED. DRIED BLOOD IN BL NASAL SEPUTM. OROPHARYNX NO BLOOD. NO HEMOTYMPANUM. NO BITE STEP-OFFS. 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 Neurologic: manager access II-XII nml as tested, no motor/sensory deficits, alert, normal mood/affect, oriented x 3 Skin Exam: normal color, warm/dry Lymphatic: no adenopathy Progress - Results/Orders Results/Orders: CT HEAD AND NECK NEG ACUTELY FOR FRX, BLEED. APPROPRIATE CHRONIC CHANGES. ACCUCHECK 119, WNL. R FINGER NO FRX. STRAINED. SAFE FOR DC TO HOME WITH FAMILY, PRESENT IN ROOM. Departure - Departure Clinical Impression: Head contusion Qualifiers: Encounter type: initial encounter Contusion of head detail: unspecified part of head Qualified Code(s): S00.93XA - Contusion of unspecified part of head, initial encounter Sprain of right little finger Qualifiers: Encounter type: initial encounter Sprain of finger site: unspecified site Qualified Code(s): S63.616A - Unspecified sprain of right little finger, initial encounter Disposition: Discharge to Home or Self Care Condition: Good Departure Forms: ED Discharge - Pt. Copy, Patient Portal Self Enrollment Instructions: DI for Trauma, Finger Sprain (DC), Minor Head Injury (DC) Diet: resume usual diet Activity: increase activity as tolerated Referrals: VANESSA CASE MD [Primary Care Provider] - 1-2 Weeks Home Medications: Ambulatory Orders metFORMIN HCL [Glucophage] 500 mg PO BID 08/02/13 Atorvastatin Calcium 20 mg PO DAILY 12/19/18 Pantoprazole Sodium 40 mg PO BEDTIME 12/19/18 Metoprolol Succinate [Metoprolol Succinate ER] 25 mg PO DAILY 02/03/20 Clopidogrel Bisulfate 75 mg DAILY 05/18/20 Aspirin [Kalin Low Dose] 81 mg PO BID 08/25/20 Ferrous Sulfate Dried [Iron Slow Release] 45 mg PO BEDTIME 08/25/20 Additional Instructions: If you notice any new problems or symptoms, please return to the ER or see your regular doctor.
[2020-08-25 12:22] VITALS: BP 171/66; TEMP 96.6; O2SAT 94
== END 2020-08-25 12:21 | disposition home or self-care (01) ==
LOC: ER 10:19
DX: S00.93XA Contusion of unspecified part of head, initial encounter (principal); S63.616A Unspecified sprain of right little finger, initial encounter; M47.812 Spondylosis without myelopathy or radiculopathy, cervical region; I50.9 Heart failure, unspecified; I11.0 Hypertensive heart disease with heart failure; E11.9 Type 2 diabetes mellitus without complications; Z86.73 Personal history of transient ischemic attack (TIA), and cerebral infarction without residual deficits; Z79.84 Long term (current) use of oral hypoglycemic drugs; Z79.82 Long term (current) use of aspirin; Z79.899 Other long term (current) drug therapy; Z88.8 Allergy status to other drugs, medicaments and biological substances; W01.0XXA Fall on same level from slipping, tripping and stumbling without subsequent striking against object, initial encounter; Y92.000 Kitchen of unspecified non-institutional (private) residence as the place of occurrence of the external cause; Z79.02 Long term (current) use of antithrombotics/antiplatelets; Z95.2 Presence of prosthetic heart valve

== ENCOUNTER 2020-09-03 14:27 | Emergency (ER) | payer MEDICARE, OTHER ==
[2020-09-03] MEDS ORDERED: SODIUM CHLORIDE 0.9% 1000ML 1,000 ML IVS ONE (15:25)
[2020-09-03] MEDS ORDERED: ONDANSETRON ODT 8 MG TAB SL ONE (15:25)
[2020-09-03] MEDS ORDERED: SUCRALFATE 1 GM/10 ML 1 GM UD PO ONE (15:26)
[2020-09-03] MEDS ORDERED: PANTOPRAZOLE SODIUM IV 40 MG VIAL IV ONE (15:26)
--- NOTE | 2020-09-03 16:20 | RAD ---
EXAM DESCRIPTION: Chest,1 View CLINICAL HISTORY: 75 years Female, nausea and vomiting COMPARISON: Previous chest x-ray May 20, 2020 TECHNIQUE: AP portable chest. FINDINGS: Heart size is large with normal pulmonary vascularity. Lungs appear improved compared to the previous study. Density behind the heart consistent with a large hiatal hernia. Calcified aortic arch. No pulmonary mass or worrisome nodule. No pneumothorax. Question small left pleural effusion. Deformities of the proximal humerus consistent with old healed fracture. Left shoulder prosthesis. IMPRESSION: Large heart without congestive failure. Large hiatal hernia Electronically signed by: Tejinder Reese MD 09/03/2020 4:18 PM [facility]
[2020-09-03] MEDS ORDERED: MAGNESIUM SULFATE PREMIX 2GM 2 GM in PREMIX BAG 1 BAG IVPB ONE (16:21)
--- NOTE | 2020-09-03 16:28 | CT ---
EXAM: CT Abdomen and Pelvis Without Intravenous Contrast CLINICAL HISTORY: The patient is 75 years old and is Female; central abd pain nv TECHNIQUE: Axial computed tomography images of the abdomen and pelvis without intravenous contrast. Sagittal and coronal reformatted images were created and reviewed. This CT exam was performed using one or more of the following dose reduction techniques: automated exposure control, adjustment of the mA and/or kV according to patient size, and/or use of iterative reconstruction technique. COMPARISON: CT abdomen pelvis with contrast February 03, 2020. FINDINGS: Lung bases: Unremarkable. No mass. No consolidation. Mediastinum: Large hiatal hernia that includes a portion of both the proximal and the distal stomach above the diaphragm, with the body of the stomach below the diaphragm. Moderate fluid in the gastric lumen both above and below the diaphragm. No gastric wall thickening. ABDOMEN: Liver: Unremarkable. Gallbladder and bile ducts: Cholecystectomy without biliary dilatation. Pancreas: Unremarkable. No ductal dilation. Spleen: Unremarkable. No splenomegaly. Adrenals: Bilateral adrenal hyperplasia. Kidneys and ureters: Mild bilateral perinephric stranding, nonspecific. No nephrolithiasis, hydronephrosis or ureter stone. Stomach and bowel: See also above mediastinal findings. Colonic diverticulosis. Previous rectal resection/anastomosis. No large or small bowel dilatation or obstruction. No bowel wall thickening. PELVIS: Appendix: The visualized appendix is normal. No pericecal inflammation to suggest acute appendicitis. Bladder: Unremarkable. No stones. Reproductive: Hysterectomy. No adnexal mass. ABDOMEN and PELVIS: Intraperitoneal space: Unremarkable. No free air. No significant fluid collection. Bones/joints: Multilevel degenerative changes in the spine with scoliosis. No acute fracture. No dislocation. Soft tissues: Ventral abdominal wall hernias containing predominantly fat. No evidence of edema/incarceration. Vasculature: Unremarkable. No abdominal aortic aneurysm. Lymph nodes: No pathologically enlarged lymph nodes. IMPRESSION: 1. Large hiatal hernia that includes a portion of both the proximal and the distal stomach above the diaphragm, with the body of the stomach below the diaphragm. Moderate fluid in the gastric lumen both above and below the diaphragm. No gastric wall thickening. 2. Colonic diverticulosis. 3. Previous rectal resection/anastomosis. 4. Ventral abdominal wall hernias containing predominantly fat. No evidence of edema/incarceration. 5. Additional non-emergent findings as above. Electronically signed by: Elizabeth Hunter MD 09/03/2020 4:26 PM [employer] MACHINE OPERATOR
[2020-09-03] MEDS ORDERED: BENZOCAINE 14% W/TETRACAINE 20 GM CAN TOP ONE (16:35)
--- NOTE | 2020-09-03 17:32 | RAD ---
CHEST, ONE VIEW XR CLINICAL HISTORY: ng tube placement COMPARISON: Chest radiograph September 03, 2020 and CTA chest February 03, 2020 TECHNIQUE: AP Chest. FINDINGS: There is a feeding tube identified extending into the left upper abdomen in the region of the stomach. Mild cardiac enlargement. Moderate aortic arch atherosclerosis. There is a valvular stent in the region of the aortic valve. Minimal pulmonary vascularity. Lungs appear clear. No pneumothorax. There is a retrocardiac opacity compatible with a known large hiatal hernia. This is approximately 16.2 cm in maximum dimension. Left shoulder arthroplasty noted. Unremarkable soft tissues. IMPRESSION: 1. Appropriate position of the feeding tube. 2. Large hiatal hernia. Electronically signed by: Janet Orr DO 09/03/2020 5:30 PM [employer]ANCH MANAGER
--- NOTE | 2020-09-03 19:55 | ED.PDOC ---
History of Present Illness - General Chief Complaint: Abdominal Pain Stated Complaint: lower abdominal pain Time Seen by Provider: 09/03/20 15:02 Source: patient Exam Limitations: no limitations - History of Present Illness Initial Comments: The patient is a 75-year-old female presented emergency room secondary to abdominal cramping and nausea as well as a few episodes of vomiting prior to arrival. She was sent here by her primary care doctor secondary to the symptoms. She has had the symptoms for about 36 hours. She does have a known longstanding hiatal hernia that is large. Apparently she is also had a significant GI bleed in the past. No evidence of any overt GI bleeding. Vital signs are stable. The patient arrives and does throw up immediately. There is no blood in the vomitus. Severity: moderate Improving Factors: nothing Worsening Factors: nothing Associated Symptoms: loss of appetite, malaise, nausea/vomiting Allergies/Adverse Reactions: Allergies Ascorbate [From Ocuvite] Allergy (Verified 05/18/20 23:44) Rash Beta-Carotene [From Ocuvite] Allergy (Verified 05/18/20 23:44) Rash Copper [From Ocuvite] Allergy (Verified 05/18/20 23:44) Rash Selenium [From Ocuvite] Allergy (Verified 05/18/20 23:44) Rash Vitamin A [From Ocuvite] Allergy (Verified 05/18/20 23:44) Rash Vitamin E [From Ocuvite] Allergy (Verified 05/18/20 23:44) Rash Zinc [From Ocuvite] Allergy (Verified 05/18/20 23:44) Rash apricot Allergy (Uncoded 05/18/20 23:44) Rash Home Medications: Ambulatory Orders metFORMIN HCL [Glucophage] 500 mg PO BID 08/02/13 Atorvastatin Calcium 20 mg PO DAILY 12/19/18 Pantoprazole Sodium 40 mg PO BEDTIME 12/19/18 Metoprolol Succinate [Metoprolol Succinate ER] 25 mg PO DAILY 02/03/20 Clopidogrel Bisulfate 75 mg DAILY 05/18/20 Aspirin [Kalin Low Dose] 81 mg PO BID 08/25/20 Ferrous Sulfate Dried [Iron Slow Release] 45 mg PO BEDTIME 08/25/20 Review of Systems - Review of Systems Constitutional: States: no symptoms reported EENTM: States: no symptoms reported Respiratory: States: no symptoms reported Cardiology: States: no symptoms reported Gastrointestinal/Abdominal: States: see HPI Genitourinary: States: no symptoms reported Musculoskeletal: States: no symptoms reported Skin: States: no symptoms reported Neurological: States: no symptoms reported Endocrine: States: no symptoms reported All other Systems: No Change from Baseline Past Medical History (General) - Patient Medical History Hx Seizures: No Hx Stroke: Yes - mini stroke in january Hx Dementia: No Hx Asthma: No Hx of COPD: No Hx Cardiac Disorders: Yes Hx Congestive Heart Failure: Yes Hx Pacemaker: No Hx Hypertension: Yes Hx Thyroid Disease: No Hx Diabetes: Yes Hx Gastroesophageal Reflux: No Hx Renal Disease: No Hx Cancer: No Hx of HIV: No Hx Hepatitis C: No Hx MRSA: No - Vaccination History Hx Tetanus, Diphtheria Vaccination: Yes Hx Influenza Vaccination: Yes Hx Pneumococcal Vaccination: Yes - Social History Hx Tobacco Use: No Hx Chewing Tobacco Use: No Hx Alcohol Use: No Hx Substance Use: No Hx Substance Use Treatment: No Hx Depression: No Hx Physical Abuse: No Hx Emotional Abuse: No Hx Suspected Abuse: No Family Medical History - Family History Mother Living Status: Hx Family Stroke: Yes Hx Cardiac Disease: Yes Hx Family Cancer: Yes - larynx Father Living Status: Hx Cardiac Disease: Yes Brother Living Status: Hx Cardiac Disease: Yes Physical Exam - Physical Exam General Appearance: Alert, Other - Obviously uncomfortable Eye Exam: bilateral normal Ears, Nose, Throat: hearing grossly normal, normal pharynx Neck: full range of motion, supple Respiratory: lungs clear, normal breath sounds, no respiratory distress, no accessory muscle use Cardiovascular/Chest: normal peripheral pulses, regular rate, rhythm, no edema Peripheral Pulses: radial,right: 2+, radial,left: 2+ Gastrointestinal/Abdominal: non tender, soft Rectal Exam: deferred Back Exam: no CVA tenderness, no vertebral tenderness Extremity: normal range of motion, non-tender, normal inspection, no pedal edema, normal capillary refill Neurologic: wall washer II-XII nml as tested, alert, normal mood/affect, oriented x 3 Skin Exam: normal color Comments: Vital Signs - 8 hr 09/03/20 09/03/20 09/03/20 16:30 17:30 18:30 Temperature 98.0 F Pulse Rate [ 92 H 104 H left brachial] Respiratory 18 20 Rate Blood Pressure 191/88 172/107 177/82 [left brachial] O2 Sat by Pulse 92 L 93 L 98 Oximetry 09/03/20 15:23 Telemetry .CONTINUOUS 09/03/20 15:24 RAPID SARS-CoV-2 RNA Stat UA [URINALYSIS] Stat 09/03/20 15:45 BLOOD CULTURE Stat Laboratory Results - last 24 hr 09/03/20 09/03/20 09/03/20 15:50 15:50 15:50 WBC 10.5 RBC 4.57 Hgb 13.6 Hct 40.3 MCV 88.1 MCH 29.8 MCHC 33.9 RDW 17.6 H Plt Count 261 MPV 8.3 Absolute Neuts (auto) 7.20 H Absolute Lymphs (auto) 2.10 Absolute Monos (auto) 0.90 H Absolute Eos (auto) 0.20 Absolute Basos (auto) 0.10 Neutrophils % 68.8 Lymphocytes % 20.1 Monocytes % 8.5 Eosinophils % 1.5 Basophils % 1.1 Normal RBC Morphology Stain quality accept PT 10.0 INR 1.01 PTT (SP) 24.2 D-Dimer, Quantitative 2210.0 H* Sodium 144 Potassium 4.0 Chloride 102 Carbon Dioxide 29 Anion Gap 17.0 BUN 26 H Creatinine 1.01 BUN/Creatinine Ratio 25.7 H Random Glucose 131 H Serum Osmolality 293.4 Lactic Acid Calcium 10.0 Magnesium 1.5 L Total Bilirubin 1.0 AST 20 ALT 18 Alkaline Phosphatase 77 Creatine Kinase 55 CK-MB (CK-2) 1.8 CK-MB (CK-2) % Not Reportable Troponin I 0.02 B-Natriuretic Peptide 190.0 H Serum Total Protein 8.1 Albumin 4.1 Globulin 4.0 H Albumin/Globulin Ratio 1.0 L Amylase 79 Lipase 37 09/03/20 15:50 WBC RBC Hgb Hct MCV MCH MCHC RDW Plt Count MPV Absolute Neuts (auto) Absolute Lymphs (auto) Absolute Monos (auto) Absolute Eos (auto) Absolute Basos (auto) Neutrophils % Lymphocytes % Monocytes % Eosinophils % Basophils % Normal RBC Morphology PT INR PTT (SP) D-Dimer, Quantitative Sodium Potassium Chloride Carbon Dioxide Anion Gap BUN Creatinine BUN/Creatinine Ratio Random Glucose Serum Osmolality Lactic Acid 1.2 Calcium Magnesium Total Bilirubin AST ALT Alkaline Phosphatase Creatine Kinase CK-MB (CK-2) CK-MB (CK-2) % Troponin I B-Natriuretic Peptide Serum Total Protein Albumin Globulin Albumin/Globulin Ratio Amylase Lipase CT scan of the abdomen pelvis shows a large hiatal hernia that is complicated and fluid-filled. No obvious distal obstruction. No obvious diverticulitis. No other obvious acute pathology. Progress - Progress Progress: 09/03/20 19:55 The patient is a 75-year-old female presenting with nausea vomiting and upper abdominal pain that is most likely due to her hiatal hernia. And placement of the NG tube and with the NG tube a total of about 600 cc of fluid was removed from the esophagus and stomach. The patient's nausea has significantly improved and she is no longer vomiting. We will remove the NG tube and allow the patient to go home for a trial there. I do recommend that she maintain a liquid diet for the next couple of days. Additionally she does need to be up and moving around to help reduce pressure on the hiatal hernia for the next few days. I would recommend that she keep some liquid Maalox for as needed use. Continue home medications otherwise. Vital signs have been stable with exception of moderate hypertension which goes along with the discomfort from the NG tube. I do want her to follow back up with her primary care doctor in a couple of days. ER warnings are given. saroj galicia [id number] Departure - Departure Clinical Impression: Hiatal hernia, Hypomagnesemia Disposition: Discharge to Home or Self Care Condition: Fair Departure Forms: ED Discharge - Pt. Copy, Patient Portal Self Enrollment Instructions: DI for Abdominal Pain-Adult, Hiatal Hernia (DC) Diet: full liquid diet Activity: increase activity as tolerated Referrals: VANESSA CASE MD [Primary Care Provider] - 1-2 Weeks Home Medications: Ambulatory Orders metFORMIN HCL [Glucophage] 500 mg PO BID 08/02/13 Atorvastatin Calcium 20 mg PO DAILY 12/19/18 Pantoprazole Sodium 40 mg PO BEDTIME 12/19/18 Metoprolol Succinate [Metoprolol Succinate ER] 25 mg PO DAILY 02/03/20 Clopidogrel Bisulfate 75 mg DAILY 05/18/20 Aspirin [Kalin Low Dose] 81 mg PO BID 08/25/20 Ferrous Sulfate Dried [Iron Slow Release] 45 mg PO BEDTIME 08/25/20 Additional Instructions: The patient is a 75-year-old female presenting with nausea vomiting and upper abdominal pain that is most likely due to her hiatal hernia. And placement of the NG tube and with the NG tube a total of about 600 cc of fluid was removed from the esophagus and stomach. The patient's nausea has significantly improved and she is no longer vomiting. We will remove the NG tube and allow the patient to go home for a trial there. I do recommend that she maintain a liquid diet for the next couple of days. Additionally she does need to be up and moving around to help reduce pressure on the hiatal hernia for the next few days. I would recommend that she keep some liquid Maalox for as needed use. Continue home medications otherwise. Vital signs have been stable with exception of moderate hypertension which goes along with the discomfort from the NG tube. I do want her to follow back up with her primary care doctor in a couple of days. ER warnings are given.
[2020-09-03 20:14] VITALS: O2SAT 97
[2020-09-03 20:32] VITALS: BP 158/92; TEMP 97.2
== END 2020-09-03 20:33 | disposition home or self-care (01) ==
LOC: ER 14:27
DX: K44.9 Diaphragmatic hernia without obstruction or gangrene (principal); E83.42 Hypomagnesemia; R11.2 Nausea with vomiting, unspecified; R10.30 Lower abdominal pain, unspecified; I50.9 Heart failure, unspecified; I11.0 Hypertensive heart disease with heart failure; E11.9 Type 2 diabetes mellitus without complications; Z86.73 Personal history of transient ischemic attack (TIA), and cerebral infarction without residual deficits; Z79.84 Long term (current) use of oral hypoglycemic drugs; Z79.899 Other long term (current) drug therapy; Z79.82 Long term (current) use of aspirin; Z88.8 Allergy status to other drugs, medicaments and biological substances; Z87.19 Personal history of other diseases of the digestive system
CPT/HCPCS: 36415; 71045; 74176; 80053; 82150; 82550; 82553; 83605; 83690; 83735; 83880; 84484; 85025; 85379; 85610; 85730; 87040; J3475; J7030